=== PATIENT | male | born 1960 | race Caucasian/White ===

== ENCOUNTER → 2018-03-21 06:40 | Outpatient (CLI) | payer OTHER, SELFPAY ==
[2018-03-21 08:56] LABS: Hemoglobin A1C% w Est Avg Glu 7.7 % (4.0-6.0)
[2018-03-21 09:18] LABS: Creatinine Urine Random 165.3 mg/dL
[2018-03-21 09:19] LABS: Alanine Aminotransferase 46 IU/L (21-72); Albumin Globulin Ratio 1.6 (1.0-2.8); Alkaline Phosphatase 65 U/L (38-126); Aspartate Aminotransferase 28 IU/L (17-59); Bilirubin Total 0.7 mg/dL (0.2-1.3); Blood Urea Nitrogen 16 mg/dL (9-20); Calcium 9.3 mg/dL (8.4-10.2); Carbon Dioxide 29 mmol/L (22-32); Chloride 103 mmol/L (98-107); Cholesterol 180 mg/dL (140-199); Estimated Glomerular Filt Rate > 60.0 mL/min (>60); Globulin 2.5 g/dL (1.7-4.1); Glucose 146 mg/dL (70-100); HDL Cholesterol 49 mg/dL (40-60); HEMOLYSIS < 15 (0-50); LDL Cholesterol Calculated 98 mg/dL (<100); Potassium 4.6 mmol/L (3.4-5.1); Sodium 143 mmol/L (137-145); Total Protein 6.5 g/dL (6.3-8.2); Triglycerides 164 mg/dL (35-150)
[2018-03-21 09:24] LABS: Microalbumi Creatinin Ratio Ur 4.2 ug/mg CR (<30); Microalbumin Urine Random 0.7 mg/dL (0-1.6)
== END ==
PROVIDERS: PCP Family Medicine; Visit Provider Family Medicine
DX: E11.9 Type 2 diabetes mellitus without complications (principal)
CPT/HCPCS: 36415; 80053; 80061; 82043; 82570; 83036

== ENCOUNTER → 2018-09-25 07:10 | Outpatient (CLI) | payer OTHER, SELFPAY ==
[2018-09-25 08:48] LABS: Hemoglobin A1C% w Est Avg Glu 9.8 % (4.0-6.0)
[2018-09-25 09:13] LABS: Creatinine Urine Random 109.6 mg/dL
[2018-09-25 09:17] LABS: Microalbumi Creatinin Ratio Ur 7.2 ug/mg CR (<30); Microalbumin Urine Random 0.8 mg/dL (0-1.6)
[2018-09-25 09:21] LABS: Alanine Aminotransferase 60 IU/L (21-72); Albumin 4.1 g/dL (3.5-5.0); Albumin Globulin Ratio 1.8 (1.0-2.8); Alkaline Phosphatase 79 U/L (38-126); Aspartate Aminotransferase 37 IU/L (17-59); BUN Creatinine Ratio 22.2 (6-22); Bilirubin Total 0.5 mg/dL (0.2-1.3); Blood Urea Nitrogen 20 mg/dL (9-20); Calcium 9.6 mg/dL (8.4-10.2); Carbon Dioxide 26 mmol/L (22-32); Chloride 102 mmol/L (98-107); Cholesterol 219 mg/dL (140-199); Estimated Glomerular Filt Rate > 60.0 mL/min (>60); Globulin 2.3 g/dL (1.7-4.1); Glucose 203 mg/dL (70-100); HDL Cholesterol 49 mg/dL (40-60); HEMOLYSIS < 15 (0-50); LDL Cholesterol Calculated 108 mg/dL (<100); Potassium 4.7 mmol/L (3.4-5.1); Sodium 138 mmol/L (137-145); Total Protein 6.4 g/dL (6.3-8.2); Triglycerides 309 mg/dL (35-150)
== END ==
PROVIDERS: PCP Family Medicine; Visit Provider Family Medicine
DX: E11.9 Type 2 diabetes mellitus without complications (principal)
CPT/HCPCS: 36415; 80053; 80061; 82043; 82570; 83036

== ENCOUNTER → 2018-11-22 07:02 | Outpatient (CLI) | payer OTHER, SELFPAY ==
[2018-11-22 08:30] LABS: Hemoglobin A1C% w Est Avg Glu 8.8 % (4.0-6.0)
[2018-11-22 08:38] LABS: Cholesterol 191 mg/dL (140-199); HDL Cholesterol 48 mg/dL (40-60); LDL Cholesterol Calculated 105 mg/dL (<100); Triglycerides 190 mg/dL (35-150)
== END ==
PROVIDERS: PCP Family Medicine; Visit Provider Family Medicine
DX: E11.9 Type 2 diabetes mellitus without complications (principal); E78.2 Mixed hyperlipidemia
CPT/HCPCS: 36415; 80061; 83036

== ENCOUNTER 2019-01-19 10:04 | Emergency (ER) | payer OTHER, SELFPAY ==
[2019-01-19 10:13] VITALS: BP 127/85; PULSE 81; RESP 16; TEMP 36.7; O2SAT 97
[2019-01-19 10:15] VITALS: PULSE 81; RESP 16; TEMP 36.7; O2SAT 97; BMI 34.8
[2019-01-19 10:47] LABS: Add Manual Diff / Slide Review NO; Basophils Absolute Auto 100 /uL (0-100); Basophils Percent Auto 0.6 % (0-2); Eosinophils Absolute Auto 200 /uL (0-450); Eosinophils Percent Auto 2.2 % (2-4); Hemoglobin 14.7 g/dL (13.5-17.5); Lymphocytes Absolute Auto 1200 /uL (1100-4500); Lymphocytes Percent Auto 14.5 % (25-40); Mean Corpuscular HGB Conc 34.2 % (30-36); Mean Corpuscular Hemoglobin 30.8 PG (26-34); Mean Corpuscular Volume 90.1 fL (80-100); Monocytes Absolute Auto 900 /uL (0-900); Monocytes Percent Auto 9.9 % (3-14); Neutrophils Absolute Auto 6300 /uL (1500-7000); Neutrophils Percent Auto 72.8 % (50-75); Platelet Count 163 X10^3/uL (150-400); Red Blood Cell Count 4.77 X10^6/uL (4.5-5.9); Red Cell Distribution Width 12.9 % (11.6-14.8); White Blood Cell Count 8.6 X10^3/uL (4.5-11.0)
[2019-01-19 10:52] LABS: Alanine Aminotransferase 42 IU/L (21-72); Albumin 4.1 g/dL (3.5-5.0); Albumin Globulin Ratio 1.5 (1.0-2.8); Alkaline Phosphatase 83 U/L (38-126); Aspartate Aminotransferase 31 IU/L (17-59); BUN Creatinine Ratio 23.8 (6-22); Bilirubin Total 0.8 mg/dL (0.2-1.3); Blood Urea Nitrogen 19 mg/dL (9-20); Calcium 9.3 mg/dL (8.4-10.2); Carbon Dioxide 26 mmol/L (22-32); Chloride 105 mmol/L (98-107); Estimated Glomerular Filt Rate > 60.0 mL/min (>60); Globulin 2.8 g/dL (1.7-4.1); Glucose 188 mg/dL (70-100); HEMOLYSIS 29 (0-50); Lipase 51 U/L (23-300); Sodium 139 mmol/L (137-145); Total Protein 6.9 g/dL (6.3-8.2)
--- NOTE | 2019-01-19 11:09 | ED.ABDPAIN ---
HPI - Abdominal Pain General Chief Complaint: Abdominal Pain Stated Complaint: Abdominal Pain Time Seen by Provider: 01/19/19 10:41 Source: patient Mode of arrival: ambulatory Limitations: no limitations History of Present Illness HPI narrative: Patient is a 58-year-old male who presents with left lower quadrant pain started last night. A it has progressively gotten worse. He denies any bloody stools or irregular bowel movements no nausea vomiting or fevers. It has not moved it started in the left lower quadrant MD complaint: abdominal pain Location: LLQ Quality: stabbing Radiation: none Migration to: no migration Relieving factors: nothing Related Data Previous Rx's Medication Instructions Recorded ciprofloxacin HCl [Cipro] 500 mg PO BID #14 tab 01/19/19 metronidazole [Flagyl] 500 mg PO TID #21 tab 01/19/19 Allergies Allergy/AdvReac Type Severity Reaction Status Date / Time No Known Drug Allergies Allergy Verified 01/19/19 11:30 Review of Systems Review of Systems GENERAL: Denies chills, fatigue, malaise, fever, sweats, travel HEENT: Denies sinus pain, ear pain, sore throat, difficulty swallowing, neck pain RESPIRATORY: Denies dyspnea, cough, wheezing, hemoptysis, sputum. CARDIOVASCULAR: Denies any chest pain heart palpitations or syncope see HPI Denies nausea, vomiting, abdominal pain, diarrhea, constipation, melena. : Denies dysuria, frequency, incontinence, hematuria, urinary retention, flank pain. MUSCULOSKELETAL: Denies weakness, joint pain, or bony pain SKIN: No rash, no erythema, no pruritus NEUROLOGIC: Denies weakness, dizziness, headache, numbness, change in speech, confusion PSYCHIATRIC: No concerning psychosocial issues. 12 point review of systems is negative except for those stated above and HPI PFSH Medical History Diabetes (Acute) Hyperlipidemia (Acute) Hypertension (Acute) Social History Smoking Status: Never smoker Social History Smoking Status: Never smoker Exam Initial Vital Signs Initial Vital Signs: Vital Signs Temperature 98.0 F 01/19/19 10:13 Pulse Rate 81 01/19/19 10:13 Respiratory Rate 16 01/19/19 10:13 Blood Pressure 127/85 01/19/19 10:13 Pulse Oximetry 97 01/19/19 10:13 GENERAL: Well-appearing, well-nourished and in no acute distress. HEENT: Head atraumatic,EOMI, pupils reactive, face symmetric, moist mucous membranes CARDIOVASCULAR: Regular rate and rhythm without murmurs, rubs or gallops. RESPIRATORY: Breath sounds equal bilaterally, no wheezes rales or rhonchi. ABDOMEN: Soft, tender left lower quadrant no guarding no rebound EXTREMITIES: Normal range of motion, no clubbing or edema. Neurovascularly intact NEUROLOGICAL: Alert and oriented x4.Normal gait and speech. Cranial nerves II through XII grossly intact. SKIN: Warm, dry, no laceration, no petechiae, no rashes or lesions. Course Orders Ordered: ED Orders 01/19/19 10:30 Complete Blood Count AUTO DIFF Stat Comprehensive Metabolic Panel Stat Lipase Stat 01/19/19 11:08 CT abdomen pelvis w con Stat Discontinued Medications Sodium Chloride (Normal Saline 0.9%) 1,000 mls @ 150 mls/hr IV CONT LISBET Last Infusion: 01/19/19 12:42 Dose: 0 mls/hr Admin: 01/19/19 11:31 Dose: 150 mls/hr Vital Signs - 8 hr 01/19/19 10:13 01/19/19 10:15 01/19/19 11:38 Temperature 98.0 F 98.0 F Pulse Rate 81 81 59 L Respiratory Rate 16 16 13 Blood Pressure Blood Pressure [Left Arm] 127/85 126/68 Pulse Oximetry 97 97 96 01/19/19 12:46 Temperature 98.4 F Pulse Rate 61 Respiratory Rate 15 Blood Pressure 120/67 Blood Pressure [Left Arm] Pulse Oximetry 98 MDM - Abdominal Pain Lab Data Attestation: I reviewed the patient's lab results. Result diagrams: 01/19/19 10:30 01/19/19 10:30 Lab Results 01/19/19 01/19/19 Range/Units 10:30 10:30 WBC 8.6 (4.5-11.0) X10^3/uL RBC 4.77 (4.5-5.9) X10^6/uL Hgb 14.7 (13.5-17.5) g/dL Hct 43.0 (41-53) % MCV 90.1 (80-100) fL MCH 30.8 (26-34) PG MCHC 34.2 (30-36) % RDW 12.9 (11.6-14.8) % Plt Count 163 (150-400) X10^3/uL Neut % (Auto) 72.8 (50-75) % Lymph % (Auto) 14.5 L (25-40) % [place] % (Auto) 9.9 (3-14) % Eos % (Auto) 2.2 (2-4) % Baso % (Auto) 0.6 (0-2) % Neut # (Auto) 6300 (9794-7327) /uL Lymph # (Auto) 1200 (0921-5015) /uL [place] # (Auto) 900 (0-900) /uL Eos # (Auto) 200 (0-450) /uL Baso # (Auto) 100 (0-100) /uL Sodium 139 (137-145) mmol/L Potassium 4.0 (3.4-5.1) mmol/L Chloride 105 (98-107) mmol/L Carbon Dioxide 26 (22-32) mmol/L BUN 19 (9-20) mg/dL Creatinine 0.80 (0.66-1.25) mg/dL Estimated GFR > 60.0 (>60) mL/min BUN/Creatinine Ratio 23.8 H (6-22) Glucose 188 H (70-100) mg/dL Calcium 9.3 (8.4-10.2) mg/dL Total Bilirubin 0.8 (0.2-1.3) mg/dL AST 31 (17-59) IU/L ALT 42 (21-72) IU/L Alkaline Phosphatase 83 (38-126) U/L Total Protein 6.9 (6.3-8.2) g/dL Albumin 4.1 (3.5-5.0) g/dL Globulin 2.8 (1.7-4.1) g/dL Albumin/Globulin Ratio 1.5 (1.0-2.8) Lipase 51 (23-300) U/L Imaging Data CT scan - abdomen: Radiologist's impression: PROCEDURE: CT ABDOMEN PELVIS W CON INDICATIONS: left lower quad pain TECHNIQUE: After the administration of intravenous contrast, 5 mm thick sections acquired from the diaphragm to the symphysis. 5 mm coronal and sagittal reformats were acquired. For radiation dose reduction, the following was used: automated exposure control, adjustment of mA and/or kV according to patient size. COMPARISON: [facility], CT, ABDOMEN/PELVIS WITH CONTRAST, 02/14/2007, 23:14. FINDINGS: Image quality: Excellent. ABDOMEN: Lung bases: Lung bases are clear. Heart size is normal. Solid organs: Liver is normal in size. Hepatic steatosis is seen. Small hypodense areas are seen involving superior anterior aspect of left hepatic lobe and measures 1 cm in size in posterior aspect of right hepatic lobe and measures 5 mm size. Gallbladder is within normal limits. Biliary system is non dilated. Pancreas enhances normally. Spleen is normal in size and enhancement. No adrenal nodules. Kidneys demonstrate normal size and enhancement. Tiny nonobstructing left renal calculi are seen measures up to 2 mm in size. Mild prominence of left renal collecting system and left ureter is seen extending to the level of left UVJ. Mild left perinephric fat stranding is seen. No obstructing renal stone ureteral stone is seen. No calcified bladder stone. Peritoneum and bowel: There is no evidence of bowel obstruction. Wall thickening and pericolonic fat stranding involving distal descending colon/proximal sigmoid colon is seen suggestive of acute diverticulitis. No free fluid or free air. No abscess collection. Nodes and vessels: No retroperitoneal or mesenteric adenopathy by size criteria. Aorta and inferior vena cava are normal in size. Miscellaneous: No ventral hernias. PELVIS: Genitourinary: Bladder wall thickness is normal. Miscellaneous: No inguinal hernias or adenopathy. Bones: No suspicious bony lesions. No vertebral body compression fractures. IMPRESSION: 1. Finding is suggestive of acute diverticulitis involving distal descending colon/proximal sigmoid colon. No abscess collection. No bowel obstruction. No free fluid or free air. 2. Questionable mild left-sided hydronephrosis/hydroureter with mild left perinephric fat stranding. No obstructing renal stone or ureteral stone is seen. Left-sided nonobstructing renal calculi measures up to 2 mm in size. A passed left-sided renal stone cannot be entirely excluded. 3. Well-circumscribed hypodensities in right and left hepatic lobes, and may represent hepatic cysts. Dictated by: Vasyl Nascimento M.D. on 01/19/2019 at 11:57 MDM Narrative Medical decision making narrative: Patient overall feeling better. CT does show diverticulitis he is not appear septic no leukocytosis. Will start him on outpatient antibiotics and have close follow-up. Discharge Plan Departure Patient Disposition: Home Clinical Impression: Diverticulitis Discharge Date/Time: 01/19/19 12:46 Interventions: ED Discharge Assessment Last Done: 01/19/19 12:46 Instructions: Diverticulitis Activity Restrictions/Additional Instructions: *You have been diagnosed with diverticulitis *What to do: At this time have infection in your colon. As it is healing avoid high-fiber diet, however high-fiber diet will help prevent this from happening again. So once healed please start. *Continue to take medications as directed Cipro 500 mg twice a day for 7 days Flagyl 500 mg 3 times a day for 7 *Follow up with your primary care provider in 2-3 days *Return to ER if you should have increasing pain bloody stools fevers or any new, worsening or concerning symptoms Prescriptions: New metronidazole [Flagyl] 500 mg tablet 500 mg PO TID Qty: 21 RF: 0 ciprofloxacin HCl [Cipro] 500 mg tablet 500 mg PO BID Qty: 14 RF: 0 Referrals: Alex Mendoza MD [Primary Care Provider] -
[2019-01-19] MEDS: SODIUM CHLORIDE 0.9% 1,000 ML 150 ML IV (11:31)
[2019-01-19 11:38] VITALS: BP 126/68; PULSE 59; RESP 13; O2SAT 96
[2019-01-19 12:46] VITALS: BP 120/67; PULSE 61; RESP 15; TEMP 36.9; O2SAT 98
== END 2019-01-19 12:46 | disposition home or self-care (01) ==
PROVIDERS: Emergency Provider Emergency Medicine; PCP Family Medicine
DX: K57.92 Diverticulitis of intestine, part unspecified, without perforation or abscess without bleeding (principal); R10.32 Left lower quadrant pain
CPT/HCPCS: 36591; 74177; 80053; 83690; 85025; 96360; 99283; 99284; Q9967

== ENCOUNTER → 2019-02-23 06:57 | Outpatient (CLI) | payer OTHER, SELFPAY ==
[2019-02-23 08:23] LABS: Alanine Aminotransferase 62 IU/L (21-72); Albumin 4.4 g/dL (3.5-5.0); Albumin Globulin Ratio 1.6 (1.0-2.8); Alkaline Phosphatase 79 U/L (38-126); Aspartate Aminotransferase 49 IU/L (17-59); BUN Creatinine Ratio 24.4 (6-22); Bilirubin Total 0.8 mg/dL (0.2-1.3); Blood Urea Nitrogen 22 mg/dL (9-20); Calcium 9.7 mg/dL (8.4-10.2); Carbon Dioxide 28 mmol/L (22-32); Chloride 103 mmol/L (98-107); Estimated Glomerular Filt Rate > 60.0 mL/min (>60); Globulin 2.8 g/dL (1.7-4.1); Glucose 195 mg/dL (70-100); HEMOLYSIS < 15 (0-50); Potassium 4.8 mmol/L (3.4-5.1); Sodium 141 mmol/L (137-145); Total Protein 7.2 g/dL (6.3-8.2)
[2019-02-23 08:28] LABS: Hemoglobin A1C% w Est Avg Glu 8.3 % (4.0-6.0)
[2019-02-23 09:09] LABS: Vitamin B12 270 pg/mL (239-931)
== END ==
PROVIDERS: PCP Family Medicine; Visit Provider Family Medicine
DX: E11.9 Type 2 diabetes mellitus without complications (principal)
CPT/HCPCS: 36415; 80053; 82607; 83036

== ENCOUNTER → 2019-05-25 07:07 | Outpatient (CLI) | payer OTHER, SELFPAY ==
[2019-05-25 08:37] LABS: Hemoglobin A1C% w Est Avg Glu 7.9 % (4.0-6.0)
== END ==
PROVIDERS: PCP Family Medicine; Visit Provider Family Medicine
DX: E11.9 Type 2 diabetes mellitus without complications (principal)
CPT/HCPCS: 36415; 83036

== ENCOUNTER → 2019-09-25 07:18 | Outpatient (CLI) | payer OTHER, SELFPAY ==
[2019-09-25 07:33] LABS: Add Manual Diff / Slide Review NO; Basophils Absolute Auto 100 /uL (0-100); Basophils Percent Auto 0.8 % (0-2); Eosinophils Absolute Auto 200 /uL (0-450); Eosinophils Percent Auto 2.7 % (2-4); Hematocrit 44.7 % (41-53); Hemoglobin 15.2 g/dL (13.5-17.5); Lymphocytes Absolute Auto 1400 /uL (1100-4500); Mean Corpuscular HGB Conc 33.9 % (30-36); Mean Corpuscular Volume 91.5 fL (80-100); Monocytes Absolute Auto 600 /uL (0-900); Monocytes Percent Auto 9.1 % (3-14); Neutrophils Absolute Auto 4400 /uL (1500-7000); Neutrophils Percent Auto 66.4 % (50-75); Platelet Count 191 X10^3/uL (150-400); Red Blood Cell Count 4.89 X10^6/uL (4.5-5.9); Red Cell Distribution Width 12.9 % (11.6-14.8); White Blood Cell Count 6.6 X10^3/uL (4.5-11.0)
[2019-09-25 07:39] LABS: Hemoglobin A1C% w Est Avg Glu 8.2 % (4.0-6.0)
[2019-09-25 07:43] LABS: Alanine Aminotransferase 40 IU/L (<50); Albumin 4.3 g/dL (3.5-5.0); Albumin Globulin Ratio 1.5 (1.0-2.8); Alkaline Phosphatase 73 U/L (38-126); Aspartate Aminotransferase 39 IU/L (17-59); Bilirubin Total 0.8 mg/dL (0.2-1.3); Blood Urea Nitrogen 16 mg/dL (9-20); Calcium 9.3 mg/dL (8.4-10.2); Carbon Dioxide 25 mmol/L (22-32); Chloride 107 mmol/L (98-107); Cholesterol 188 mg/dL (140-199); Estimated Glomerular Filt Rate > 60.0 mL/min (>60); Globulin 2.9 g/dL (1.7-4.1); Glucose 178 mg/dL (70-100); HDL Cholesterol 42 mg/dL (40-60); HEMOLYSIS 16 (0-50); LDL Cholesterol Calculated 102 mg/dL (<100); Potassium 4.4 mmol/L (3.4-5.1); Sodium 141 mmol/L (137-145); Total Protein 7.2 g/dL (6.3-8.2); Triglycerides 222 mg/dL (35-150)
[2019-09-25 09:48] LABS: Creatinine Urine Random 169.3 mg/dL
[2019-09-25 09:53] LABS: Microalbumi Creatinin Ratio Ur 5.3 ug/mg CR (<30); Microalbumin Urine Random 0.9 mg/dL (0-1.6)
== END ==
PROVIDERS: PCP Family Medicine; Referring Provider Family Medicine; Visit Provider Family Medicine
DX: E11.9 Type 2 diabetes mellitus without complications (principal)
CPT/HCPCS: 36415; 80053; 80061; 82043; 82570; 83036; 85025

== ENCOUNTER → 2020-01-01 07:14 | Outpatient (CLI) | payer OTHER, SELFPAY ==
[2020-01-01 08:19] LABS: Add Manual Diff / Slide Review NO; Basophils Absolute Auto 100 /uL (0-100); Basophils Percent Auto 0.9 % (0-2); Eosinophils Absolute Auto 100 /uL (0-450); Eosinophils Percent Auto 2.2 % (2-4); Hematocrit 44.6 % (41-53); Hemoglobin 15.4 g/dL (13.5-17.5); Lymphocytes Absolute Auto 1600 /uL (1100-4500); Lymphocytes Percent Auto 24.7 % (25-40); Mean Corpuscular HGB Conc 34.5 % (30-36); Mean Corpuscular Hemoglobin 31.5 PG (26-34); Mean Corpuscular Volume 91.2 fL (80-100); Monocytes Absolute Auto 600 /uL (0-900); Monocytes Percent Auto 9.3 % (3-14); Neutrophils Absolute Auto 4100 /uL (1500-7000); Neutrophils Percent Auto 62.9 % (50-75); Platelet Count 200 X10^3/uL (150-400); Red Blood Cell Count 4.89 X10^6/uL (4.5-5.9); Red Cell Distribution Width 12.6 % (11.6-14.8); White Blood Cell Count 6.5 X10^3/uL (4.5-11.0)
[2020-01-01 08:36] LABS: Hemoglobin A1C% w Est Avg Glu 9.3 % (4.0-6.0)
[2020-01-01 08:40] LABS: Alanine Aminotransferase 53 IU/L (<50); Albumin 4.3 g/dL (3.5-5.0); Albumin Globulin Ratio 1.9 (1.0-2.8); Alkaline Phosphatase 80 U/L (38-126); Aspartate Aminotransferase 58 IU/L (17-59); BUN Creatinine Ratio 24.4 (6-22); Bilirubin Total 0.7 mg/dL (0.2-1.3); Blood Urea Nitrogen 19 mg/dL (9-20); Calcium 9.9 mg/dL (8.4-10.2); Carbon Dioxide 26 mmol/L (22-32); Chloride 103 mmol/L (98-107); Cholesterol 199 mg/dL (140-199); Estimated Glomerular Filt Rate > 60.0 mL/min (>60); Globulin 2.3 g/dL (1.7-4.1); Glucose 212 mg/dL (70-100); HDL Cholesterol 47 mg/dL (40-60); HEMOLYSIS < 15 (0-50); LDL Cholesterol Calculated 100 mg/dL (<100); Potassium 4.6 mmol/L (3.4-5.1); Sodium 138 mmol/L (137-145); Total Protein 6.6 g/dL (6.3-8.2); Triglycerides 260 mg/dL (35-150)
[2020-01-01 09:03] LABS: Prostate Specific Antigen Scrn 0.179 ng/mL (0.1-4.0)
== END ==
PROVIDERS: PCP Family Medicine; Referring Provider Family Medicine; Visit Provider Family Medicine
DX: Z12.5 Encounter for screening for malignant neoplasm of prostate (principal); E78.2 Mixed hyperlipidemia; E11.9 Type 2 diabetes mellitus without complications; I10 Essential (primary) hypertension; Z83.3 Family history of diabetes mellitus
CPT/HCPCS: 36415; 80053; 80061; 83036; 85025; G0103

== ENCOUNTER → 2020-04-09 07:14 | Outpatient (CLI) | payer OTHER, SELFPAY ==
[2020-04-09 08:29] LABS: Hemoglobin A1C% w Est Avg Glu 11.1 % (4.0-6.0)
== END ==
PROVIDERS: PCP Family Medicine; Referring Provider Family Medicine; Visit Provider Family Medicine
DX: E11.9 Type 2 diabetes mellitus without complications (principal)
CPT/HCPCS: 36415; 83036

== ENCOUNTER → 2020-05-20 07:26 | Outpatient (CLI) | payer OTHER, SELFPAY ==
[2020-05-20 08:18] LABS: Hemoglobin A1C% w Est Avg Glu 10.9 % (4.0-6.0)
== END ==
PROVIDERS: PCP Family Medicine; Referring Provider Family Medicine; Visit Provider Family Medicine
DX: E11.9 Type 2 diabetes mellitus without complications (principal)
CPT/HCPCS: 36415; 83036

== ENCOUNTER → 2020-07-21 07:03 | Outpatient (CLI) | payer OTHER, SELFPAY ==
[2020-07-21 08:54] LABS: Add Manual Diff / Slide Review NO; Basophils Absolute Auto 0 /uL (0-100); Basophils Percent Auto 0.7 % (0-2); Eosinophils Absolute Auto 200 /uL (0-450); Hematocrit 46.2 % (41-53); Hemoglobin 15.6 g/dL (13.5-17.5); Lymphocytes Absolute Auto 1700 /uL (1100-4500); Lymphocytes Percent Auto 27.3 % (25-40); Mean Corpuscular HGB Conc 33.9 % (30-36); Mean Corpuscular Hemoglobin 30.8 PG (26-34); Mean Corpuscular Volume 90.8 fL (80-100); Monocytes Absolute Auto 500 /uL (0-900); Monocytes Percent Auto 7.5 % (3-14); Neutrophils Absolute Auto 3700 /uL (1500-7000); Neutrophils Percent Auto 61.5 % (50-75); Platelet Count 189 X10^3/uL (150-400); Red Blood Cell Count 5.08 X10^6/uL (4.5-5.9); Red Cell Distribution Width 12.8 % (11.6-14.8); White Blood Cell Count 6.1 X10^3/uL (4.5-11.0)
[2020-07-21 09:05] LABS: Hemoglobin A1C% w Est Avg Glu 10.2 % (4.0-6.0)
[2020-07-21 09:17] LABS: Alanine Aminotransferase 38 IU/L (<50); Albumin 4.1 g/dL (3.5-5.0); Albumin Globulin Ratio 1.6 (1.0-2.8); Alkaline Phosphatase 86 U/L (38-126); Aspartate Aminotransferase 35 IU/L (17-59); BUN Creatinine Ratio 21.5 (6-22); Bilirubin Total 0.5 mg/dL (0.2-1.3); Blood Urea Nitrogen 17 mg/dL (9-20); Calcium 9.3 mg/dL (8.4-10.2); Carbon Dioxide 28 mmol/L (22-32); Chloride 105 mmol/L (98-107); Cholesterol 200 mg/dL (140-199); Estimated Glomerular Filt Rate > 60.0 mL/min (>60); Globulin 2.6 g/dL (1.7-4.1); Glucose 201 mg/dL (70-100); HDL Cholesterol 48 mg/dL (40-60); HEMOLYSIS < 15 (0-50); LDL Cholesterol Calculated 101 mg/dL (<100); Potassium 4.5 mmol/L (3.4-5.1); Sodium 138 mmol/L (137-145); Total Protein 6.7 g/dL (6.3-8.2); Triglycerides 253 mg/dL (35-150)
[2020-07-21 10:03] LABS: Thyroid Stimulating Hormone 2.31 uIU/mL (0.47-4.68)
== END ==
PROVIDERS: PCP Family Medicine; Referring Provider Family Medicine; Visit Provider Family Medicine
DX: I10 Essential (primary) hypertension (principal); E11.9 Type 2 diabetes mellitus without complications; E78.2 Mixed hyperlipidemia; N20.0 Calculus of kidney
CPT/HCPCS: 36415; 80053; 80061; 83036; 84443; 85025

== ENCOUNTER → 2020-10-14 07:14 | Outpatient (CLI) | payer OTHER, SELFPAY ==
[2020-10-14 08:19] LABS: Hemoglobin A1C% w Est Avg Glu 9.8 % (4.0-6.0)
[2020-10-14 08:22] LABS: Alanine Aminotransferase 34 IU/L (<50); Albumin 3.9 g/dL (3.5-5.0); Albumin Globulin Ratio 1.4 (1.0-2.8); Alkaline Phosphatase 87 U/L (38-126); Aspartate Aminotransferase 33 IU/L (17-59); BUN Creatinine Ratio 19.2 (6-22); Bilirubin Total 0.6 mg/dL (0.2-1.3); Blood Urea Nitrogen 15 mg/dL (9-20); Calcium 9.5 mg/dL (8.4-10.2); Carbon Dioxide 27 mmol/L (22-32); Chloride 104 mmol/L (98-107); Cholesterol 154 mg/dL (140-199); Estimated Glomerular Filt Rate > 60.0 mL/min (>60); Globulin 2.7 g/dL (1.7-4.1); Glucose 238 mg/dL (70-100); HDL Cholesterol 44 mg/dL (40-60); HEMOLYSIS < 15 (0-50); LDL Cholesterol Calculated 73 mg/dL (<100); Potassium 4.4 mmol/L (3.4-5.1); Sodium 137 mmol/L (137-145); Total Protein 6.6 g/dL (6.3-8.2); Triglycerides 183 mg/dL (35-150)
[2020-10-14 09:19] LABS: Microalbumin Urine Random 0.8 mg/dL (0-1.6)
[2020-10-14 09:20] LABS: Creatinine Urine Random 125.1 mg/dL; Microalbumi Creatinin Ratio Ur 6.3 ug/mg CR (<30)
[2020-10-15 17:36] LABS: Hep C Virus Ab w/Reflex Quant NEGATIVE s/c (NEGATIVE)
== END ==
PROVIDERS: PCP Family Medicine; Referring Provider Family Medicine; Visit Provider Family Medicine
DX: E11.9 Type 2 diabetes mellitus without complications (principal)
CPT/HCPCS: 36415; 80053; 80061; 82043; 82570; 83036; 86803

== ENCOUNTER → 2021-01-27 07:04 | Outpatient (CLI) | payer OTHER, SELFPAY ==
[2021-01-27 07:44] LABS: Hemoglobin A1C% w Est Avg Glu 10.1 % (4.0-6.0)
== END ==
PROVIDERS: PCP Family Medicine; Referring Provider Family Medicine; Visit Provider Family Medicine
DX: E11.9 Type 2 diabetes mellitus without complications (principal)
CPT/HCPCS: 36415; 83036

== ENCOUNTER → 2021-04-10 07:04 | Outpatient (CLI) | payer OTHER, SELFPAY ==
[2021-04-10 09:00] LABS: Hemoglobin A1C% w Est Avg Glu 9.9 % (4.0-6.0)
== END ==
PROVIDERS: PCP Family Medicine; Referring Provider Family Medicine; Visit Provider Family Medicine
DX: E11.9 Type 2 diabetes mellitus without complications (principal)
CPT/HCPCS: 36415; 83036

== ENCOUNTER → 2021-07-09 07:23 | Outpatient (CLI) | payer OTHER, SELFPAY ==
[2021-07-09 08:43] LABS: Hemoglobin A1C% w Est Avg Glu 9.7 % (4.0-6.0)
== END ==
PROVIDERS: PCP Family Medicine; Referring Provider Family Medicine; Visit Provider Family Medicine
DX: E11.9 Type 2 diabetes mellitus without complications (principal)
CPT/HCPCS: 36415; 83036

== ENCOUNTER 2021-10-01 13:11 | Emergency (ER) | payer OTHER, SELFPAY ==
[2021-10-01 13:13] VITALS: BP 190/103; PULSE 70; RESP 18; TEMP 36.3; O2SAT 99; BMI 34.8
--- NOTE | 2021-10-01 13:19 | DI.RAD.S_ITS ---
PROCEDURE: XR CHEST 1V INDICATIONS: chest pain TECHNIQUE: One view of the chest was acquired. COMPARISON: None. FINDINGS: Surgical changes and devices: None. Lungs and pleura: Lungs are clear. No pleural effusions or pneumothorax. Mediastinum: Mediastinal contours appear normal. Heart size is normal. Bones and chest wall: No suspicious bony lesions. Overlying soft tissues appear unremarkable. IMPRESSION: No acute cardiopulmonary disease process. Dictated by: Carly Marc MD, PhD on 10/01/2021 at 14:01 Approved by: Carly Marc MD, PhD on 10/01/2021 at 14:01
[2021-10-01 13:39] LABS: Add Manual Diff / Slide Review NO; Basophils Absolute Auto 100 /uL (0-100); Basophils Percent Auto 1.1 % (0-2); Eosinophils Absolute Auto 200 /uL (0-450); Eosinophils Percent Auto 2.5 % (2-4); Hematocrit 42.3 % (41-53); Hemoglobin 14.4 g/dL (13.5-17.5); Lymphocytes Absolute Auto 1400 /uL (1100-4500); Lymphocytes Percent Auto 23.3 % (25-40); Mean Corpuscular HGB Conc 34.1 % (30-36); Mean Corpuscular Hemoglobin 30.7 PG (26-34); Mean Corpuscular Volume 89.9 fL (80-100); Monocytes Absolute Auto 500 /uL (0-900); Monocytes Percent Auto 8.4 % (3-14); Neutrophils Absolute Auto 4000 /uL (1500-7000); Neutrophils Percent Auto 64.7 % (50-75); Platelet Count 205 X10^3/uL (150-400); Red Cell Distribution Width 12.9 % (11.6-14.8); White Blood Cell Count 6.2 X10^3/uL (4.5-11.0)
[2021-10-01 13:52] LABS: Alanine Aminotransferase 35 IU/L (<50); Albumin 4.4 g/dL (3.5-5.0); Albumin Globulin Ratio 1.6 (1.0-2.8); Alkaline Phosphatase 79 U/L (38-126); Aspartate Aminotransferase 34 IU/L (17-59); Bilirubin Total 0.5 mg/dL (0.2-1.3); Blood Urea Nitrogen 24 mg/dL (9-20); Calcium 9.1 mg/dL (8.4-10.2); Carbon Dioxide 27 mmol/L (22-32); Chloride 106 mmol/L (98-107); Creatine Kinase 177 U/L (55-170); Estimated Glomerular Filt Rate > 60 mL/min (>60); Globulin 2.8 g/dL (1.7-4.1); Glucose 208 mg/dL (70-100); HEMOLYSIS 19 (0-50); Lipase 290 U/L (23-300); Magnesium 1.6 mg/dL (1.6-2.3); Potassium 4.2 mmol/L (3.4-5.1); Sodium 142 mmol/L (137-145); Total Protein 7.2 g/dL (6.3-8.2)
[2021-10-01 14:03] LABS: Troponin I < 0.012 ng/mL (0.01-0.034)
[2021-10-01 14:07] LABS: CKMB % Relative Index 1.1 % (1.5-5.0); Creatine Kinase MB 1.98 ng/mL (<2.37)
[2021-10-01 15:12] VITALS: PULSE 57; O2SAT 98
[2021-10-01 15:14] VITALS: BP 130/64; PULSE 57; RESP 13; O2SAT 97
--- NOTE | 2021-10-01 15:20 | ED_ITS ---
HPI - Chest Pain General Chief Complaint: Chest Pain Stated Complaint: chest pain last night/today/dizziness Time Seen by Provider: 10/01/21 15:12 Source: patient Mode of arrival: Ambulatory Limitations: no limitations History of Present Illness HPI narrative: Patient is a 61-year-old male history of diabetes presenting chest discomfort. He has actually had some discomfort off and on for couple of weeks. He rm cribes it as a dull ache in the center of the chest but more on the left side. He says he gets frequent episodes a day lasting only a second. It is nonradiating. He denies any palpitations or shortness of breath with exertion. He said yesterday he started noticing some sharper pain. Which was a change. He says that at the discomfort only last for about 2nd. He has not taken anything for the pain. He has not traveled anywhere recently he denies any orthopnea. No nausea vomiting or abdominal pain. He has no prior history of coronary artery disease. He does smoke marijuana daily but no drugs. No family history of coronary artery disease. Related Data Previous Rx's Medication Instructions Recorded ciprofloxacin HCl 500 mg tablet 500 mg PO BID #14 tab 01/19/19 (Cipro) metronidazole 500 mg tablet 500 mg PO TID #21 tab 01/19/19 (Flagyl) Allergies Allergy/AdvReac Type Severity Reaction Status Date / Time No Known Drug Allergies Allergy Verified 01/19/19 11:30 Review of Systems Review of Systems Narrative: GENERAL: Denies chills, fatigue, malaise, fever, sweats, travel HEENT: Denies sinus pain, ear pain, sore throat, difficulty swallowing, neck pain RESPIRATORY: Denies dyspnea, cough, wheezing, hemoptysis, sputum. CARDIOVASCULAR: See HPI GASTROINTESTINAL: Denies nausea, vomiting, abdominal pain, diarrhea, constipation, melena. : Denies dysuria, frequency, incontinence, hematuria, urinary retention, flank pain. MUSCULOSKELETAL: Denies weakness, joint pain, or bony pain SKIN: No rash, no erythema, no pruritus NEUROLOGIC: Denies weakness, dizziness, headache, numbness, change in speech, confusion PSYCHIATRIC: No concerning psychosocial issues. 12 point review of systems is negative except for those stated above and HPI Patient History Medical History (Updated 10/01/21 @ 16:13 by Shaista Mosquera DO) Diabetes Hyperlipidemia Hypertension Social History Smoking Status: Former smoker Smoking Status: Former smoker alcohol intake frequency: holidays/special occasions only Substance Use Type: marijuana Exam Initial Vital Signs Initial Vital Signs: Vital Signs Temperature 97.4 F L 10/01/21 13:13 Pulse Rate 70 10/01/21 13:13 Respiratory Rate 18 10/01/21 13:13 Blood Pressure 190/103 H 10/01/21 13:13 Pulse Oximetry 99 10/01/21 13:13 GENERAL: Alert pleasant 61-year-old male and in no acute distress. HEENT: Head atraumatic,EOMI, pupils reactive, face symmetric, moist mucous membranes CARDIOVASCULAR: Regular rate and rhythm without murmurs, rubs or gallops. RESPIRATORY: Breath sounds equal bilaterally, no wheezes rales or rhonchi. ABDOMEN: Soft, nontender. Normoactive bowel sounds all 4 quadrants. No guarding or rebound. EXTREMITIES: Normal range of motion, no clubbing or edema. Neurovascularly intact NEUROLOGICAL: Alert and oriented x4.Normal gait and speech. SKIN: Warm, dry, no laceration, no petechiae, no rashes or lesions. Scores HEART Score Heart Score history: Slightly Suspicious Heart Score EKG: Normal Heart Score Age: 45-64 years old Heart Score risk factors: 1-2 risk factors Heart Score troponin: < or = to normal limit Heart Score Total: 2 Course Orders Ordered: ED Orders 10/01/21 13:16 EKG-12 Lead Stat 10/01/21 13:19 XR chest 1V Stat 10/01/21 13:24 Complete Blood Count AUTO DIFF Stat Comprehensive Metabolic Panel Stat Lipase Stat Magnesium Stat Troponin & CK Cardiac Panel Stat Vital Signs Vital signs: Vital Signs - 8 hr 10/01/21 13:13 10/01/21 15:12 10/01/21 15:14 Temperature 97.4 F L Pulse Rate 70 57 L 57 L Respiratory Rate 18 13 Blood Pressure 190/103 H 130/64 Pulse Oximetry 99 98 97 10/01/21 15:30 10/01/21 16:00 Temperature Pulse Rate 54 L 53 L Respiratory Rate 13 12 Blood Pressure 123/58 L 123/58 L Pulse Oximetry 96 95 MDM - Chest Pain Lab Data Result diagrams: 10/01/21 13:24 04/14/22 13:24 Labs: Lab Results 10/01/21 10/01/21 Range/Units 13:24 13:24 WBC 6.2 (4.5-11.0) X10^3/uL RBC 4.70 (4.5-5.9) X10^6/uL Hgb 14.4 (13.5-17.5) g/dL Hct 42.3 (41-53) % MCV 89.9 (80-100) fL MCH 30.7 (26-34) PG MCHC 34.1 (30-36) % RDW 12.9 (11.6-14.8) % Plt Count 205 (150-400) X10^3/uL Neut % (Auto) 64.7 (50-75) % Lymph % (Auto) 23.3 L (25-40) % [place] % (Auto) 8.4 (3-14) % Eos % (Auto) 2.5 (2-4) % Baso % (Auto) 1.1 (0-2) % Neut # (Auto) 4000 (5696-2435) /uL Lymph # (Auto) 1400 (4730-8144) /uL [place] # (Auto) 500 (0-900) /uL Eos # (Auto) 200 (0-450) /uL Baso # (Auto) 100 (0-100) /uL Sodium 142 (137-145) mmol/L Potassium 4.2 (3.4-5.1) mmol/L Chloride 106 (98-107) mmol/L Carbon Dioxide 27 (22-32) mmol/L BUN 24 H (9-20) mg/dL Creatinine 0.96 (0.66-1.25) mg/dL Estimated GFR > 60 (>60) mL/min BUN/Creatinine Ratio 25.0 H (6-22) Glucose 208 H (70-100) mg/dL Calcium 9.1 (8.4-10.2) mg/dL Magnesium 1.6 (1.6-2.3) mg/dL Total Bilirubin 0.5 (0.2-1.3) mg/dL AST 34 (17-59) IU/L ALT 35 (<50) IU/L Alkaline Phosphatase 79 (38-126) U/L Total Creatine Kinase 177 H (55-170) U/L CK-MB (CK-2) 1.98 (<2.37) ng/mL CK-MB (CK-2) Rel Index 1.1 L (1.5-5.0) % Troponin I < 0.012 (0.01-0.034) ng/mL Total Protein 7.2 (6.3-8.2) g/dL Albumin 4.4 (3.5-5.0) g/dL Globulin 2.8 (1.7-4.1) g/dL Albumin/Globulin Ratio 1.6 (1.0-2.8) Lipase 290 (23-300) U/L ECG Data Interpretation: Normal sinus rhythm rate 71 UT interval 162 QRS 98 QTC 434 T-wave inversion noted in lead [address] changes no priors to compare. MDM Narrative Medical decision making narrative: At this time the patient has had discomfort off and on for a couple of weeks it does not sound cardiac in nature is seeing is that it lasts a very brief time. Even though it was a dull ache and now it is occasionally sharp. He has a negative troponin and normal EKG. He has a low heart score. I did discuss with him that he probably needs outpatient cardiac workup but does not need to stay in hospital. I encouraged him to return to the ED if his symptoms should change in way. I discussed all findings with the patient, Education has been performed regarding treatment plan, diagnosis, warning signs and symptoms and all concerns have been addressed. Verbally agree with and understood all of the above. Discharge Plan Departure Patient Disposition: Home Clinical Impression: Atypical chest pain Instructions: DI for Atypical Chest Pain Activity Restrictions/Additional Instructions: *You have been diagnosed with atypical chest pain *What to do: At this time workup in the emergency department is negative. However you may still need further heart testing with your primary care provider. *Continue to take medications as directed Aspirin 81 mg daily *Follow up with your primary care provider in 2-3 days or call [phone] *Return to ER if you should have changing or worsening chest discomfort. Shortness of breath, palpitations or any new, worsening or concerning symptoms Prescriptions: No Action metronidazole [Flagyl] 500 mg tablet 500 mg PO TID Qty: 21 0RF ciprofloxacin HCl [Cipro] 500 mg tablet 500 mg PO BID Qty: 14 0RF Referrals: Yuriy Whaley MD [Primary Care Provider] -
[2021-10-01 15:30] VITALS: BP 123/58; PULSE 54; RESP 13; O2SAT 96
[2021-10-01 16:00] VITALS: BP 123/58; PULSE 53; RESP 12; O2SAT 95
== END 2021-10-01 16:27 | disposition home or self-care (01) ==
PROVIDERS: Emergency Provider Emergency Medicine; PCP Family Medicine
DX: R07.89 Other chest pain (principal); Z87.891 Personal history of nicotine dependence
CPT/HCPCS: 36415; 71045; 80053; 82550; 82553; 83690; 83735; 84484; 85025; 93005; 93010; 99284

== ENCOUNTER → 2021-10-12 06:54 | Outpatient (CLI) | payer OTHER, SELFPAY ==
[2021-10-12 08:30] LABS: Alanine Aminotransferase 36 IU/L (<50); Albumin 4.1 g/dL (3.5-5.0); Albumin Globulin Ratio 1.5 (1.0-2.8); Alkaline Phosphatase 72 U/L (38-126); Aspartate Aminotransferase 35 IU/L (17-59); BUN Creatinine Ratio 18.2 (6-22); Bilirubin Total 0.6 mg/dL (0.2-1.3); Blood Urea Nitrogen 18 mg/dL (9-20); Calcium 9.3 mg/dL (8.4-10.2); Carbon Dioxide 28 mmol/L (22-32); Chloride 106 mmol/L (98-107); Cholesterol 153 mg/dL (140-199); Estimated Glomerular Filt Rate > 60 mL/min (>60); Globulin 2.7 g/dL (1.7-4.1); Glucose 227 mg/dL (70-100); HDL Cholesterol 44 mg/dL (40-60); HEMOLYSIS < 15 (0-50); LDL Cholesterol Calculated 80 mg/dL (<100); Potassium 4.7 mmol/L (3.4-5.1); Sodium 140 mmol/L (137-145); Total Protein 6.8 g/dL (6.3-8.2); Triglycerides 147 mg/dL (35-150)
[2021-10-12 08:31] LABS: Creatinine Urine Random 122.5 mg/dL
[2021-10-12 08:34] LABS: Hemoglobin A1C% w Est Avg Glu 9.8 % (4.0-6.0)
[2021-10-12 08:36] LABS: Microalbumi Creatinin Ratio Ur 8.9 ug/mg CR (<30); Microalbumin Urine Random 1.1 mg/dL (0-1.6)
[2021-10-12 08:41] LABS: LDL Cholesterol Direct 75 mg/dL (<100)
== END ==
PROVIDERS: PCP Family Medicine; Referring Provider Family Medicine; Visit Provider Family Medicine
DX: E11.9 Type 2 diabetes mellitus without complications (principal); E78.2 Mixed hyperlipidemia; E66.9 Obesity, unspecified; I10 Essential (primary) hypertension
CPT/HCPCS: 36415; 80053; 80061; 82043; 82570; 83036; 83721

== ENCOUNTER → 2022-01-13 06:55 | Outpatient (CLI) | payer OTHER, SELFPAY ==
[2022-01-13 07:54] LABS: Hemoglobin A1C% w Est Avg Glu 9.5 % (4.0-6.0)
== END ==
PROVIDERS: PCP Family Medicine; Referring Provider Family Medicine; Visit Provider Family Medicine
DX: E11.9 Type 2 diabetes mellitus without complications (principal)
CPT/HCPCS: 36415; 83036

== ENCOUNTER → 2022-04-07 09:29 | Outpatient (CLI) | payer OTHER, SELFPAY ==
--- NOTE | 2022-04-21 10:04 | DIAB.MNT ---
Initial Diabetes Medical Nutrition Therapy Assessment Name: Camilo Soria Date: 04/07/22 Time: [id number] Dx: Type II Diabetes Provider: Judd Page presents today for initial visit. Reports diagnosis of DM for about 6+ years. Endorses FH of T2DM with mother. Tearful today in discussing the passing of his son two years ago from T1DM related complications. States he is very motivated to manage his DM. States this is important to him. His goals are to reduce his HgA1c and lose weight. States dinners are the more difficult. Reports stress contributing to motivation to prepare meals. States his cat passed last week. Reports trial of 2 GLP1RA with same results, n/v/d at work. Currently taking pioglitizone, glipizide, and metformin. Diet Recall: 645a: 1/2c oatmeal with splenda and brown sugar and cinnamon 10a: banana 12p: sandwich on ww and low carb yogurt 6p: chicken with 1/2c rice, sometimes veggies or salad snacks: grazing on random foods ie sf pudding, sf jello, lunch meat, chips Beverages: 64 oz wtaer, sf soda, avoiding ETOH Anthropometrics: Ht: 5'11 Wt: 243# reported Physical Activity: Rides bike 3 days per week for 45-60 min 5 mi. One barrier to activity includes ankle pain, which he plans to discuss with PCP. 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 Self-Monitoring Blood Glucose: Reports checking a couple times per day: FBG and pre dinner. No meter or log book today. Reports FBG toay 148 mg/dL and pre dinner often 89-111 mg/dL. States he sometimes feels dizzy when BG is 80 mg/dL. Never seen a BG under 70 mg/dL. Diabetes Medications: Metformin 1000mg BID Glipizide 10mg BID Pioglitizone 45mg Pertinent Labs: HgA1c: 9.5% 12/2021 9.8% 09/2021 9.7% 06/2021 Past Medical History: (Last Reviewed 10/01/21 @ 15:40 by Shaista Mosquera DO) Diabetes Hyperlipidemia Hypertension Nutrition Rx: Carbohydrates: Meal:45g Snack:15-30g Nutrition Diagnosis: - Excessive kcal intake r/t avoiding snacks in the evening resulting in grazing aeb diet recall and pt report - Nutrition knowledge deficit r/t no previous MNT for DM aeb pt report Intervention: This participant was very receptive. Provided appropriate educational handouts. Discussed the following topics: Completed intake assessment. Discussed barriers to care. Pathophysiology of T2DM HgA1c, its correlation to blood glucose numbers, and rationale for goal Importance of self-monitoring, how often, and when to check. Suggested checking at different times to evaluate meals Plate Method, impact of macronutrients on blood sugar, meal timing, carbohydrate counting, pairing macronutrients and spreading out carbohydrates for better blood glucose management Recommended servings for carbohydrates at meals and snacks Heart [facility] nutrition Brainstormed appropriate meal plan based on food preferences Role of physical activity and following provider guidelines for safety Created SMART goals for patient self-care and success. Goals: Check grocery store for easy to prep frozen brown rice Try Hs snack to prevent grazing Cont bike ride safely 3 x per week Check BG FBG and 1-2 hr pc Follow-up: JULIA JULIO follow-up in 2 weeks for DSME class series and then 1:1 follow-up thereafter. Jammie Dumont RDN, [facility] Certified Diabetes Care and Rail Setter P: [phone] Thank you for this referral
== END ==
PROVIDERS: PCP Family Medicine; Referring Provider Family Medicine; Visit Provider Family Medicine
DX: E11.9 Type 2 diabetes mellitus without complications (principal); Z71.3 Dietary counseling and surveillance
CPT/HCPCS: 97802

== ENCOUNTER → 2022-04-20 07:04 | Outpatient (CLI) | payer OTHER, SELFPAY ==
[2022-04-20 09:23] LABS: Cholesterol 161 mg/dL (140-199); HDL Cholesterol 42 mg/dL (40-60); LDL Cholesterol Calculated 80 mg/dL (<100); Triglycerides 197 mg/dL (35-150)
[2022-04-20 11:15] LABS: Creatinine Urine Random 63.7 mg/dL; Protein (Total) Urine Random < 5 mg/dL (0-12); Protein Creatinine Ratio Urine 0.07 GRAM/24H
--- NOTE | 2022-04-26 14:47 | DIAB.FU ---
Follow-up Diabetes Education Assessment Name: Camilo Soria Date: 04/20/22 Time: 950a-6450a Camilo presents today for class 1 of 3 for DSME. States he has been reducing carb intake and checking BG. Finding his FBG are often elevated. Later in the day BG are in goal. Class topics covered: ? Debunk nutrition myths and discuss how to sustain healthy eating long-term through moderation and variety ? Define macronutrients and determine their impact on blood sugars ? Discuss macronutrient pairing, Plate Method, and carb counting ? Review general recommendations for carbohydrates ? Practice label reading ? Discuss the role of fiber in diabetes and provide examples of sources ? Review heart health nutrition: fats, fiber, and sodium ? Determine recommendations for grocery shopping and eating out ? Discuss alcohol recommendations ? Review the role of substitute sugars in diabetes management ? Set SMART goals Goal Set: Walk 3 days per week ; check BG daily Follow-up: Diabetes Physiology and Medication Class in one week Jammie Dumont RDN, [facility] Registered Dietitian, Certified Diabetes Care and Key Filer [phone] [email or web address]
== END ==
PROVIDERS: PCP Family Medicine; Referring Provider Family Medicine; Visit Provider Family Medicine
DX: E11.65 Type 2 diabetes mellitus with hyperglycemia (principal); E78.2 Mixed hyperlipidemia; E66.9 Obesity, unspecified; I10 Essential (primary) hypertension
CPT/HCPCS: 36415; 80061; 82570; 83036; 84156; G0109

== ENCOUNTER → 2022-04-27 09:20 | Outpatient (CLI) | payer OTHER, SELFPAY ==
--- NOTE | 2022-04-29 10:07 | DIAB.FU ---
Diabetes Education Class Series: Diabetes Physiology and Medications Name: Camilo Soria Date: 04/27/22 Time: [id number] Camilo presents for class 2 of 3 DSME classes. States managing complication risk is a priority for him. States he has been checking BG regularly at home. Continues taking Metformin and Sulfonylurea. Class topics covered: ? Diabetes pathophysiology ? Discuss different types of diabetes ? Review criteria for diagnosing diabetes ? Review HgA1c measurement and associated blood sugars ? Review blood sugar monitoring safety, technique, and goals ? Discuss ways to reduce complications associated with diabetes, includes microvascular and macrovascular complications ? Review diabetes medications types, action, and side effects ? Health care visits recommended for people with T2DM ? Immunization recommended for people with T2DM ? SMART goals review Follow-up: Diabetes Lifestyle and Ongoing Support Class next week Jammie Dumont RDN, [facility] Registered Dietitian, Certified Diabetes Care and Wind Farm Operations Manager [phone] [email or web address]
== END ==
PROVIDERS: PCP Family Medicine; Referring Provider Family Medicine; Visit Provider Family Medicine
DX: E11.9 Type 2 diabetes mellitus without complications (principal); Z71.3 Dietary counseling and surveillance
CPT/HCPCS: G0109

== ENCOUNTER → 2022-05-04 09:19 | Outpatient (CLI) | payer OTHER, SELFPAY ==
--- NOTE | 2022-05-04 11:47 | DIAB.FU ---
Diabetes Education Class Series: Diabetes Lifestyle Change and Ongoing Support Name: Camilo Soria Date: 05/04/22 Time: [id number] Camilo presents for class 3 of 3 for DSME. States he has been successful in managing portions, plate method, and adding more fiber into his diet. Some things he would like to work on include more stress management with meditation and more exercise. Class topics covered: ? Discuss the difference between physical activity and exercise ? Determine physical activity benefits and impact on diabetes ? Review physical activity recommendations and safety ? Discuss emergency preparedness ? Discuss diabetes and emotions (diabetes burnout/distress) ? Review and practice stress management techniques ? Review support groups and community resources ? Discuss the role of family support in diabetes care ? What is going well? Challenges of diabetes? ? Set SMART goals Goal Set: Incorporate meditation for stress management Follow-up: 1:1 visit follow-up Jammie Dumont RDN, [facility] Registered Dietitian, Certified Diabetes Care and [employer] [phone] [email or web address]
== END ==
PROVIDERS: PCP Family Medicine; Referring Provider Family Medicine; Visit Provider Family Medicine
DX: E11.9 Type 2 diabetes mellitus without complications (principal); Z71.3 Dietary counseling and surveillance
CPT/HCPCS: G0109

== ENCOUNTER → 2022-05-11 15:45 | Outpatient (CLI) | payer OTHER, SELFPAY ==
--- NOTE | 2022-05-27 11:15 | DIAB.MNTFU ---
Follow-up Diabetes Medical Nutrition Therapy Assessment Name: Camilo Soria Date: 05/11/22 Time: 4-440p Dx: Type II Diabetes Camilo presents for 1:1 follow-up post DSME classes. States he continues to stick to nutrition changes. Additionally has increased physical activity. Still struggling with elevated FBG. Reports h/o Jardiance, but this caused lower back pain he associated with kidney issues. Sees PCP in July. Most recent HgA1c reported 8% (down from 9.5% in 12/2021). Also down 8# since last visit. Endorses increased energy. Has also been working on mental health with meditation. Plans to do yoga with his neighbor 3 days per week. Drinks adequate fluids however reports most beverages consumed during the evening. Very little water during the day. Diet Recall: 645a: frozen breakfast sandwich 10a: banana and nuts or cheese 12p: sandwich with turkey or ham and low carb yogurt 230p: HB egg with almonds or cheese 6-7p: fish with veggies or chx with veg and 1c rice 8p: 10-15 chips with nuts or cheese Beverages: 64oz water, zero sugar gatorade Quit drinking beer. Anthropometrics: Ht: 5'11 Wt: 235# Last Visit Wt: 243# reported Physical Activity: Rides bike 3 days per week for 45-60 min 5 mi. One barrier to activity includes ankle pain, which he plans to discuss with PCP and plans to start PT. 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 Also incorporating resistance training 2 days per week. Self-Monitoring Blood Glucose: FBG readings all >130 mg/dL. Postprandial readings in goal <180 mg/dL. Continued physical activity and weight management may help reduce this readings, however he may benefit from additional DM medication or increase in glipizide. Date Pre Post Pre Post Pre Post HS 04/08 152 04/14 105 129 04/15 141 04/16 151 05/04 173 115 173 05/05 139 171 149 161 113 132 05/06 146 Diabetes Medications: Metformin 1000mg BID Glipizide 10mg BID Pioglitizone 45mg Pertinent Labs: HgA1c: 8% reported today 9.5% 12/2021 9.8% 09/2021 9.7% 06/2021 Past Medical History: (Last Reviewed 10/01/21 @ 15:40 by Shaista Mosquera DO) Diabetes Hyperlipidemia Hypertension Nutrition Rx: Carbohydrates: Meal:45g Snack:15-30g Nutrition Diagnosis: - Excessive kcal intake r/t avoiding snacks in the evening resulting in grazing aeb diet recall and pt report- improved - Nutrition knowledge deficit r/t no previous MNT for DM aeb pt report - improved - Intervention: This participant was very receptive. Provided appropriate educational handouts. Discussed the following topics: Blood sugar review and trends. Physical activity plan and progress Stress management/mental health strategies/plan Potential for med management for elevated FBG Fluids and kidney health Created SMART goals for patient self-care and success. Goals: Check grocery store for easy to prep frozen brown rice- met Try Hs snack to prevent grazing - met Cont bike ride safely 3 x per week- met Check BG FBG and 1-2 hr pc - met Consider more water during the day- new Follow-up: JULIA JULIO follow-up in July after PCP visit for check-in. Overall, Camilo is doing wonderful with lifestyle changes. The only concern currently is his elevated FBG. Encouraged him to discuss with provider for potential med management prn. he agreed. Jammie Dumont RDN, [facility] Certified Diabetes Care and Field Education Director P: [phone] Thank you for this referral
== END ==
PROVIDERS: PCP Family Medicine; Referring Provider Family Medicine; Visit Provider Family Medicine
DX: E11.9 Type 2 diabetes mellitus without complications (principal); Z79.84 Long term (current) use of oral hypoglycemic drugs; Z71.3 Dietary counseling and surveillance
CPT/HCPCS: 97803

== ENCOUNTER → 2022-08-12 15:18 | Outpatient (CLI) | payer OTHER, SELFPAY ==
--- NOTE | 2022-08-20 11:43 | DIAB.MNTFU ---
Follow-up Diabetes Medical Nutrition Therapy Assessment Name: Camilo Soria Date: 08/12/22 Time: 345-430p Dx: Type II Diabetes Provider: Judd Camilo presents for follow-up DM visit after attending DSME classes. States he is 'trying to get back on track.?Endorses having sweets now and then. Feels he has regressed some in lifestyle changes since classes. Some dinners high in CHO intake, ie taco night. Has upcoming [employer] cruise?in November. Judd f/u in 6 months. Diet Recall:? B: (6:45 am) oatmeal (quick oats, dry 1 cup) with 2% milk, cinnamon, and Splenda brown?sugar.? S: (10 am) banana and HB egg.? L: (12 pm) 1/2 sandwich, avocado, low CHO yogurt.? S: (2:30 pm) 1 serving almonds?+/- HBE D: (6-7 pm) not hungry. 1 cup rice, chicken, veggies OR 2 tacos (1-2 Tbsp beef, corn, 1-2 Tbsp beans, 1 cup rice) S: (8-9 pm nuts or 10-15 chips? ETOH: nothing.? Fluid: trying to increase more during the day.?Tends to drink most fluids after work. Anthropometrics: Ht: 5' Wt: 235# reported at PCP (down from initial wt of 243#). States his goal is to get under 230#. Physical Activity: 40-45 min walks on weekends. Has not been doing his resistance training exercises. Interested in indoor exercise equipment. Main barrier is reported fx left wrist, which he reports he has fx in the past. Self-Monitoring Blood Glucose: Less BG checks recently. Reports pre dinner 130 and elevated FBG of 180mg/dl. No meter or log for review. Diabetes Medications: Metformin 1000mg BID Glipizide 10mg BID Pioglitizone 45mg Pertinent Labs: HgA1c: 8% reported today (no change) 8% reported 04/2022 9.5% 12/2021 9.8% 09/2021 9.7% 06/2021 Past Medical History: (Last Reviewed 10/01/21 @ 15:40 by Shaista Mosquera DO) Diabetes Hyperlipidemia Hypertension Nutrition Rx: Carbohydrates: Meal:45g Snack:15-30g Nutrition Diagnosis: - Excessive CHO intake r/t some dinners >60g CHO aeb diet recall - Self monitoring deficit r/t reported less SMBG potentially due to stage of change aeb pt report Intervention: This participant was very receptive. Provided appropriate educational handouts. Discussed the following topics: SMBG plan and trends Motivation for managing T2DM Meal planning and carb counting review Physical activity plan and progress Created SMART goals for patient self-care and success. Goals: Get some indoor exercise equipment Increase SMBG freq Measure CHO portions at dinner Follow-up: JULIA JULIO follow-up in 2 months per pt request. Wants more time to implement changes. Jammie Dumont RDN, [facility] Certified Diabetes Care and Contractor [employer] P: [phone] Thank you for this referral
== END ==
PROVIDERS: PCP Family Medicine; Referring Provider Family Medicine; Visit Provider Family Medicine
DX: E11.9 Type 2 diabetes mellitus without complications (principal); Z71.3 Dietary counseling and surveillance; Z79.84 Long term (current) use of oral hypoglycemic drugs
CPT/HCPCS: 97803

== ENCOUNTER → 2022-10-07 15:15 | Outpatient (CLI) | payer OTHER, SELFPAY ==
--- NOTE | 2022-10-20 17:20 | DIAB.MNTFU ---
Follow-up Diabetes Medical Nutrition Therapy Assessment Name: Camilo Soria Date: 10/07/22 Time: 330-420p Dx: Type II Diabetes Provider: Judd Page presents for diabetes follow-up. Continues having BG elevations. Reports he has rx for Trulicity but has not started. Previously was taking Ozempic and experienced n/v/d x 1 week and stopped. States he cannot have these symptoms and work. States he has been more conscious of carb intake. Diet recall indicates low to moderate carb intake for most meals, occasional high carb intake with pasta. Has increased fiber with veggie intake. Diet Recall: 645: nothing or egg 10a: egg and banana 12p: half sandwich and avocado with low carb yogurt 230p: almonds and/or cheese stick 6-7p: salads or mac and cheese x 2c with ham or chicken with veg and 1c rice 8-9p: handful of corn chips Beverages: 60oz water, zero sugar soda Anthropometrics: Ht: 5'11 Wt: 230-235# reported Physical Activity: 45 min walking daily. Active at work. thinking of purchasing gym equipment to increase resistance training. Self-Monitoring Blood Glucose: Difficulty with getting blood sample for SMBG, however does not change lancet for weeks at a time. Likely dull needle and callused finger tips. Prior to visit tries to get many reading for review. All FBG above goal. Most postprandial breakfast readings elevated despite low carb options. post lunch often <180mg/dl (maybe due to activity with work?). Pre meal readings mostly elevated above 130mg/dl. Date Pre Post Pre Post Pre Post HS 09/28 212 205 205 178 162 09/29 180 176 160 146 139 09/30 204 178 167 156 142 10/01 199 187 168 154 122 10/05 190 221 130 141 171 10/06 154 201 192 242 152 10/07 194 191 Diabetes Medications: Metformin 1000mg BID Glipizide 10mg BID Pioglitizone 45mg Trulicity (not started) Pertinent Labs: HgA1c: 8% reported last visit (no change) 8% reported 04/2022 9.5% 12/2021 9.8% 09/2021 9.7% 06/2021 Past Medical History: (Last Reviewed 10/01/21 @ 15:40 by Shaista Botnick, DO) Diabetes Hyperlipidemia Hypertension Nutrition Rx: Carbohydrates: Meal:45g Snack:15-30g Nutrition Diagnosis: - Occasional excessive CHO intake r/t pasta portions aeb diet recall Intervention: This participant was very receptive. Provided appropriate educational handouts. Discussed the following topics: Blood sugar review and trends. Medication management: starting Trulicity, s/s, precautions Brief nutrition review SMBG review: changing lancet for best technique, usual recs to check 1-2 x per day Physical activity plan and progress Created SMART goals for patient self-care and success. Goals: Get some indoor exercise equipment- in progress Increase SMBG freq- met Measure CHO portions at dinner - met Change out lancet- new Look into workout equipment- new Start Trulicity Tuesday- new Follow-up: JULIA JULIO follow-up in 4 weeks. Overall, Camilo has implemented lifestyle changes but seems to need more coverage with meds. Hopeful that Trulicity will help with BG management. Jammie Dumont RDN, [facility] Certified Diabetes Care and Cell Operator P: [phone] Thank you for this referral
== END ==
PROVIDERS: PCP Family Medicine; Referring Provider Family Medicine; Visit Provider Family Medicine
DX: E11.9 Type 2 diabetes mellitus without complications (principal); Z79.84 Long term (current) use of oral hypoglycemic drugs; Z71.3 Dietary counseling and surveillance
CPT/HCPCS: 97803

== ENCOUNTER → 2022-11-04 15:14 | Outpatient (CLI) | payer OTHER, SELFPAY ==
--- NOTE | 2022-11-26 15:38 | DIAB.FU ---
Follow-up Diabetes Education Assessment Name: Camilo Soria Date: 11/04/22 Time: 320-4p Dx: Type II Diabetes Provider: Judd Page presents for Dm follow-up. States he is feeling some diabetes burnout with elevated BG despite lifestyle change. Also reports sugar cravings lately. States he tried Trulicity and experienced lower back pain to where he could not move for a few days after. D/c medication. Denied any n/v/d from med. Similar SE as Neal reported. Endorses wanting a medication that has less SE. Reports continued efforts in lower carb intake. Choosing lower carb HS snacks and pairing with protein. Has [place] cruise with girlfriend planned for November. Physical Activity: gardening, active at work. Walking most days. no resistance training. Self-Monitoring Blood Glucose: 4/ elevated FBG, 2/4 elevated after breakfast, 1/3 elevated after lunch. Improved from last visit when all FBG were elevated, with most readings 180-212mg/dl at that time. Improved blood sample with changing out lancet as discussed last visit. Date Pre Post Pre Post Pre Post HS 10/25 177 274 194 154 10/26 145 10/27 138 10/28 177 181 184 142 128 10/29 112 212 212 177 167 10/30 242 146 176 201 127 11/02 125 Diabetes Medications: Metformin 1000mg BID Glipizide 10mg BID Pioglitizone 45mg Trulicity (not taking) Pertinent Labs: HgA1c: 8% reported last visit (no change) 8% reported 04/2022 9.5% 12/2021 9.8% 09/2021 9.7% 06/2021 Past Medical History: (Last Reviewed 10/01/21 @ 15:40 by Shaista Mosquera DO) Diabetes Hyperlipidemia Hypertension Intervention: This participant was very receptive. Provided appropriate educational handouts. Discussed the following topics: Recent blood sugar results and trends Medication management: different med options. Potential for Hs insulin to help with FBG and less SE. Encouraged discussion with provider. Review of general nutrition recommendations and current intake Physical activity plan and impact on blood sugars Diabetes Burnout His progress in lifestyle change Created SMART goals for patient self-care and success. Goals: Change out lancet- met Look into workout equipment- in progress Start Trulicity Tuesday- met Make PCP appt- new Discuss DM med options, may benefit from HS insulin- new Follow-up: JULIA JULIO follow-up in Apr after this THALIA/SUMANTH returns from leave. Offered other options for follow-up outside this program. Jammie Dumont RDN, [facility] [place] Certified Diabetes Care and Credit Collections Specialist P: [phone] Thank you for this referral
== END ==
PROVIDERS: PCP Family Medicine; Referring Provider Family Medicine; Visit Provider Family Medicine
DX: E11.9 Type 2 diabetes mellitus without complications (principal); Z71.3 Dietary counseling and surveillance; Z79.84 Long term (current) use of oral hypoglycemic drugs
CPT/HCPCS: G0108

== ENCOUNTER 2023-04-05 07:05 | Day surgery (SDC) | payer OTHER, SELFPAY ==
--- NOTE | 2023-04-05 | PATH_ITS ---
[facility] [place] Accession Number: [id number] No. of containers..01 Tissue . 01 Material submitted: . colon - DESCENDING COLON POLYP . 01 Diagnosis: Descending Colon Polyp: Tubular adenoma. MRV 04/07/2023 1154 Local . 01 Electronically signed: . Vick Adrian MD, PhD, Pathologist NPI- [id number] . 01 Gross description: . DESCENDING COLON POLYP: Received in formalin are 2 fragment(s) of ortiz, soft tissue measuring 0.5 x 0.3 x 0.2 cm to 0.6 x 0.3 x 0.2 cm submitted entirely in 1 cassette(s) /SANDY 04/06/2023 1925 Local . 01 Pathologist provided ICD-10: D12.4 . 01 CPT . 365078 Specimen Comment: A courtesy copy of this report has been sent to [phone] Performed at: 01 [facility] [address] [facility] [address] [place] [address], [place], [place] [id number] MD Akshat Naylor MD Phone: [phone]
[2023-04-05 07:18] VITALS: BP 147/73; PULSE 65; RESP 16; TEMP 36.3; O2SAT 99; BMI 32.9
[2023-04-05] MEDS: LACTATED RINGERS 1,000 ML 150 ML IV (07:35)
[2023-04-05] MEDS: INSULIN LISPRO 100 UNIT/ML 3ML VIAL SUBCUT (07:47)
--- NOTE | 2023-04-05 08:12 | P.HP_ITS ---
History of Present Illness History of Present Illness Date Patient Seen: 04/05/23 Time Patient Seen: 08:12 Chief complaint: SDC Narrative: 62-year-old man with a positive fecal immunochemical test here for diagnostic colonoscopy. No previous colonoscopy or fairly history of intestinal malignancy. No abdominal concerns today including pain, unintentional weight loss gross blood per rectum. [facility] Medical History (Updated 04/05/23 @ 08:13 by Choco Gallagher MD) Diabetes Hyperlipidemia Hypertension Social History household members: none Smoking Status: Former smoker alcohol intake: never Meds Home Medications and Allergies Home Medications Medication Instructions Recorded Confirmed Type sodium,potassium,mag sulfates 17.5 See Rx Instructions PO .COMPLEX 03/25/23 04/05/23 Rx gram-3.13 gram-1.6 gram oral soln #354 mL (Suprep Bowel Prep Kit) atorvastatin 40 mg tablet mg 04/05/23 History bupropion HCl 150 mg tablet,12 hr mg PO 04/05/23 History sustained-release glipizide 10 mg tablet mg 04/05/23 History lisinopril 10 mg tablet mg 04/05/23 History metformin 500 mg tablet mg 04/05/23 History pioglitazone 45 mg tablet mg 04/05/23 History Allergies Allergy/AdvReac Type Severity Reaction Status Date / Time No Known Drug Allergies Allergy Verified 01/19/19 11:30 Exam Vital Signs (past 8 hours): - 04/05/23 07:18 Temperature 97.3 F L Pulse Rate 65 Respiratory Rate 16 Blood Pressure 147/73 H Pulse Oximetry 99 Oxygen Delivery Method Room Air Oxygen Delivery Method Room Air Narrative Exam Narrative: General adult man alert oriented no acute distress Abdomen soft nontender nondistended Assessment & Plan Assessment and plan (1) Positive FIT (fecal immunochemical test): Status: Acute Assessment & Plan narrative: 62-year-old man with a positive fecal immunochemical test here for diagnostic colonoscopy. Technical details were discussed. Risks, benefits, alternatives explained. Risks including but not limited to myocardial infarction, aspiration, bleeding, pain, missed lesion, incomplete examination, need for further radiographic studies, colonic perforation, and need for major abdominal surgery were discussed. All questions were answered to their satisfaction, and they are in agreement with this plan.
--- NOTE | 2023-04-05 08:24 | PM.OP.COLON ---
Operative Date/Time/Diagnoses Date of procedure: 04/05/23 Time of procedure: 08:25 Pre-op diagnosis: Positive fecal immunochemical test Post-op diagnosis: other (Colonic polyp x1) Procedure & Clinicians Study performed: Diagnostic Colonoscopy polypectomy Same procedure as scheduled: Yes Indications: Positive fecal immunochemical test Surgeon: Choco Gallagher Procedure Notes Procedure in detail: The history and physical was performed/updated and the patient is ASA class is 3. The procedure was discussed in detail with the patient. Potential risks complications including infection, bleeding, missed diagnosis, perforation, need for surgery, and were explained. Their questions were answered and informed consent was obtained. Patient was brought to the procedure room and placed standard monitoring equipment. The patient's vital signs were monitored continuously throughout the entire procedure. Prior to starting time-out was performed. The patient was placed in the left lateral recumbent position. Procedural sedation was administered by anesthesia. Examination began with a thorough inspection of the perianal area there was no evidence of fissures, fistulae, external hemorrhoids or cutaneous malignancy. The colonoscopy scope was then placed into the anal canal and was advanced to the cecum, which was identified by the ileocecal valve, the appendiceal orifice and the confluence of the taenia. The scope was then slowly withdrawn examining colon thoroughly in all directions, irrigating it of any residual stool. Descending colon-5 mm flat polyp removed in its entirety using cold snare at 100 cm from the verge. The area of the polyp was tattooed. Sigmoid colon-moderate diverticulosis. The patient tolerated the procedure well. They will be discharged once criteria are met. The prep was of fair quality. The withdrawl time was 8 minutes. Specimen(s): other (Descending colonic polyp 100 cm) Impression: Colonic polyp x1 Post-procedure Plan for aftercare: Follow-up is dependent on pathology findings Disposition: same day surgery
[2023-04-05 08:45] VITALS: BP 141/70; PULSE 50; RESP 12; TEMP 35.9; O2SAT 95
[2023-04-05 08:50] VITALS: BP 142/54; PULSE 48; RESP 12; O2SAT 96
[2023-04-05 08:55] VITALS: BP 146/71; PULSE 78; RESP 12; TEMP 36.4; O2SAT 96
[2023-04-05 09:00] VITALS: BP 153/80; PULSE 49; RESP 12; O2SAT 96
[2023-04-05 09:38] VITALS: BP 149/72; PULSE 49; RESP 14; TEMP 36.3; O2SAT 98
== END 2023-04-05 09:44 | disposition home or self-care (01) ==
PROVIDERS: PCP Family Medicine; Referring Provider Surgery; Visit Provider Surgery
PROC: 0DJD8ZZ Inspection of Lower Intestinal Tract, Via Natural or Artificial Opening Endoscopic (ICD-10-PCS; CPT 45378; principal; 2023-04-05 08:15)
DX: Z12.11 Encounter for screening for malignant neoplasm of colon (principal); R19.5 Other fecal abnormalities; K57.30 Diverticulosis of large intestine without perforation or abscess without bleeding; D12.4 Benign neoplasm of descending colon
CPT/HCPCS: 45381; 45385; 82962; J1815; J2704

== ENCOUNTER → 2023-05-25 15:15 | Outpatient (CLI) | payer OTHER, SELFPAY ==
--- NOTE | 2023-05-25 17:15 | DIAB.FU ---
Follow-up Diabetes Education Assessment Name: Camilo Soria Date: 05/25/23 Time: 330-601p Dx: Type II Diabetes Provider: Judd Page presents for Dm follow-up. Reports start of long-acting insulin BID, up to 15u BID. Reports much improved BG management with this. Diet recall indicates low to moderate carb intake for most meals, with occasional high intake ie pasta x 2c. Pairing CHO and pro well. Veggies daily. Reports he went on a cruise which challenged his eating regimen, ie big portions. Endorses weight gain during this, but now back to his usual regimen. Needs review for hypoglycemia treatment. Anthropometrics: Wt: 235# reported UBW: 230-235# reported Physical Activity: Bike or walk 45-60 mins daily Self-Monitoring Blood Glucose: Did not like FSL CGM. States it was not accurate. Discussed option for trial of Dexcom if he would like in the future since there is a calibration option. FBG mostly in goal 112-125mg/dl, much improved since starting insulin. Some readings later in the day pre dinner of 150-180mg/dl. No postprandial for review. Diabetes Medications: Metformin 1000mg BID Glipizide 10mg BID Pioglitizone 45mg Long acting insulin 15u BID Pertinent Labs: HgA1c: around 8.5% reported today (RD will req labs) 8% reported 04/2022 9.5% 12/2021 9.8% 09/2021 9.7% 06/2021 Past Medical History: (Last Reviewed 04/05/23 @ 08:13 by Chooc Gallagher MD) Diabetes Hyperlipidemia Hypertension Intervention: This participant was very receptive. Provided appropriate educational handouts. Discussed the following topics: Recent blood sugar results and trends Medication management Rule of 15 for low tx Review of general nutrition recommendations and current intake Physical activity plan and impact on blood sugars Created SMART goals for patient self-care and success. Goals: Make PCP appt- met Discuss DM med options, may benefit from HS insulin- met Check pc dinner BG- new If dinner reading >180mg/dl pc write down what you ate- new sales support assistant glucose tabs for hypo tx prn- new Message RD BG in one week- new Follow-up: JULIA CDC[facility] follow-up in 1-2 via messaging. 1:1 f/u in 1-2 months. Jammie Dumont RDN, [facility] Certified Diabetes Care and Cyber Transport Systems Specialist P: [phone] Thank you for this referral
== END ==
PROVIDERS: PCP Family Medicine; Referring Provider Family Medicine; Visit Provider Family Medicine
DX: E11.9 Type 2 diabetes mellitus without complications (principal); Z79.84 Long term (current) use of oral hypoglycemic drugs; Z79.4 Long term (current) use of insulin; Z71.3 Dietary counseling and surveillance
CPT/HCPCS: G0108

== ENCOUNTER 2023-07-10 23:19 | Emergency (ER) | payer OTHER, SELFPAY ==
[2023-07-10 23:33] VITALS: BP 178/84; PULSE 75; RESP 18; TEMP 36.4; O2SAT 99; BMI 34.4
--- NOTE | 2023-07-10 23:40 | PC.NURSE ---
see triage note hx of kidney stones
[2023-07-10 23:41] LABS: Urine Volume 10mL (spun)
[2023-07-10 23:43] VITALS: PULSE 67; O2SAT 98
[2023-07-10 23:44] LABS: Add Manual Diff / Slide Review NO; Basophils Absolute Auto 100 /uL (0-100); Basophils Percent Auto 0.5 % (0-2); Eosinophils Absolute Auto 100 /uL (0-450); Eosinophils Percent Auto 1.1 % (2-4); Hematocrit 41.4 % (41-53); Hemoglobin 14.2 g/dL (13.5-17.5); Lymphocytes Absolute Auto 1200 /uL (1100-4500); Lymphocytes Percent Auto 9.7 % (25-40); Mean Corpuscular HGB Conc 34.4 % (30-36); Mean Corpuscular Hemoglobin 30.4 PG (26-34); Mean Corpuscular Volume 88.2 fL (80-100); Monocytes Absolute Auto 1200 /uL (0-900); Monocytes Percent Auto 9.8 % (3-14); Neutrophils Absolute Auto 9500 /uL (1500-7000); Neutrophils Percent Auto 78.9 % (50-75); Platelet Count 188 X10^3/uL (150-400); Red Blood Cell Count 4.69 X10^6/uL (4.5-5.9); White Blood Cell Count 12.1 X10^3/uL (4.5-11.0)
[2023-07-10 23:57] LABS: Alanine Aminotransferase 30 IU/L (<50); Albumin 4.1 g/dL (3.5-5.0); Albumin Globulin Ratio 1.5 (1.0-2.8); Alkaline Phosphatase 70 U/L (38-126); Aspartate Aminotransferase 25 IU/L (17-59); BUN Creatinine Ratio 19.2 (6-22); Bilirubin Total 0.8 mg/dL (0.2-1.3); Blood Urea Nitrogen 30 mg/dL (9-20); Calcium 9.9 mg/dL (8.4-10.2); Carbon Dioxide 22 mmol/L (22-32); Chloride 108 mmol/L (98-107); Estimated Glomerular Filt Rate 51 mL/min (>60); Globulin 2.8 g/dL (1.7-4.1); Glucose 100 mg/dL (80-110); HEMOLYSIS < 15 (0-50); Lipase 1247 U/L (23-300); Sodium 140 mmol/L (137-145); Total Protein 6.9 g/dL (6.3-8.2)
[2023-07-11] VITALS (11 sets, daily range): BP systolic 152–174; BP diastolic 73–83; PULSE 67–98; RESP 18; O2SAT 93–99
--- NOTE | 2023-07-11 00:04 | ED.MALEGU ---
HPI - Male Genitourinary General Chief complaint: Urogenital-Male Stated complaint: kidney stone Time Seen by Provider: 07/11/23 00:01 Source: patient Mode of arrival: Ambulatory Limitations: no limitations History of Present Illness HPI Narrative: 62-year-old male with history of hypertension, dyslipidemia, diabetes type 2 and kidney stones who presents with complaint of right flank pain and suspected kidney stone. Patient states he has been trying to pass it at home stayed in his right back has not moved to the front at any point. He states no subjective fevers. He has had nausea and vomiting on and off. States had some loose stools but no black or blood. He has had hematuria and frequency. States feels very similar to prior kidney stones. He has not had any epigastric or upper abdominal pain. Patient states he has been taking Tylenol at home for pain. It has not been inadequate. States he has had prior lithotripsies for kidney stones, has had prior ureteral stents. States no stents in place currently. He has seen urology in the past and had procedures done here at [facility] and [facility]. Former smoker, occasional alcohol, uses marijuana but no other recreational drugs. Dr. Whaley is his primary care physician. Related Data Home Medications Medication Instructions Recorded Confirmed atorvastatin 40 mg tablet mg 04/05/23 bupropion HCl 150 mg tablet,12 hr mg PO 04/05/23 sustained-release glipizide 10 mg tablet mg 04/05/23 lisinopril 10 mg tablet mg 04/05/23 metformin 500 mg tablet mg 04/05/23 pioglitazone 45 mg tablet mg 04/05/23 Previous Rx's Medication Instructions Recorded oxycodone 5 mg tablet 5 mg PO QID PRN pain #14 tabs 07/11/23 tamsulosin 0.4 mg capsule (Flomax) 0.4 mg PO DAILY #7 caps 07/11/23 Allergies Allergy/AdvReac Type Severity Reaction Status Date / Time No Known Drug Allergies Allergy Verified 01/19/19 11:30 Review of Systems Review of Systems ROS Unobtainable: All systems reviewed & are unremarkable except as noted in HPI and below Patient History Medical History (Updated 07/11/23 @ 01:25 by Jocelyn Bond DO) Diabetes Hyperlipidemia Hypertension Social History household members: none Smoking Status: Former smoker alcohol intake: never Smoking Status: Former smoker alcohol intake frequency: holidays/special occasions only Substance Use Type: marijuana Exam Narrative Exam Narrative: GENERAL: Alert and oriented x three, male in moderate distress HEENT: Head normocephalic, atraumatic, EOMI, pupils reactive, face symmetric, moist mucous membranes NECK: Supple, full range of motion CARDIOVASCULAR: Regular rate and rhythm without murmurs, rubs or gallops. RESPIRATORY: Breath sounds equal bilaterally, no wheezes rales or rhonchi. ABDOMEN: Soft, nontender. Normoactive bowel sounds all 4 quadrants. No guarding or rebound, rigidity, no mass : No CVA tenderness on examination. EXTREMITIES: Normal range of motion, no clubbing or edema. Neurovascularly intact NEUROLOGICAL: Cranial nerves II through XII grossly intact. Moving all extremities SKIN: Warm, dry, no petechiae, no rashes or lesions. Initial Vital Signs Initial Vital Signs: Vital Signs Temperature 97.5 F L 07/10/23 23:33 Pulse Rate 75 07/10/23 23:33 Respiratory Rate 18 07/10/23 23:33 Blood Pressure 178/84 H 07/10/23 23:33 Pulse Oximetry 99 07/10/23 23:33 Oxygen Delivery Method Room Air 07/10/23 23:33 Course Orders Ordered: ED Orders 07/10/23 23:26 Urine Microscopic Stat 07/10/23 23:35 Complete Blood Count AUTO DIFF Stat Comprehensive Metabolic Panel Stat Lipase Stat 07/11/23 00:18 CT kidney ureter bladder (KUB) Stat 07/11/23 01:30 CT angio chest abdomen pelvis Stat Discontinued Medications Hydromorphone HCl (Hydromorphone 1 Mg Inj) 1 mg IV NOW ONE Stop: 07/11/23 01:09 Last Admin: 07/11/23 01:11 Dose: 1 mg Documented By: ÁNGEL Sodium Chloride (Normal Saline 0.9%) 1,000 mls @ 1,000 mls/hr IV BOLUS ONE Stop: 07/11/23 01:18 Last Infusion: 07/11/23 01:20 Dose: Infused Documented By: Admin: 07/11/23 00:23 Dose: 1,000 mls/hr Documented By: ÁNGEL Morphine Sulfate (Morphine 4 Mg/Ml Inj) 4 mg IV NOW ONE Stop: 07/11/23 00:19 Last Admin: 07/11/23 00:23 Dose: 4 mg Documented By: ÁNGEL Ondansetron HCl (Ondansetron 4 Mg Odt) 4 mg PO NOW PRN PRN Reason: Nausea And Vomiting Ondansetron HCl (Ondansetron 4 Mg/2 Ml Inj) 4 mg IV NOW PRN PRN Reason: Nausea And Vomiting Ondansetron HCl (Ondansetron 4 Mg/2 Ml Inj) 4 mg IV NOW ONE Stop: 07/11/23 00:20 Last Admin: 07/11/23 00:23 Dose: 4 mg Documented By: ÁNGEL Ondansetron HCl (Ondansetron 4 Mg Odt Prepack) 1 bottle MISC DIRECTED ONE Stop: 07/11/23 04:07 Last Admin: 07/11/23 04:17 Dose: 1 bottle Oxycodone/Acetaminophen (Oxycodone/Apap 5/325 Prepack) 1 bottle MISC DIRECTED ONE Stop: 07/11/23 04:07 Last Admin: 07/11/23 04:17 Dose: 1 bottle Vital Signs Vital signs: Vital Signs - 8 hr 07/10/23 23:33 07/10/23 23:43 07/11/23 00:00 Temperature 97.5 F L Pulse Rate 75 67 76 Respiratory Rate 18 18 Blood Pressure 178/84 H Pulse Oximetry 99 98 99 Oxygen Delivery Method Room Air 07/11/23 00:30 07/11/23 00:38 07/11/23 00:38 Temperature Pulse Rate 98 H 78 Respiratory Rate Blood Pressure 174/83 H Pulse Oximetry 98 97 Oxygen Delivery Method 07/11/23 01:00 07/11/23 01:30 07/11/23 02:00 Temperature Pulse Rate 72 73 74 Respiratory Rate 18 18 Blood Pressure Pulse Oximetry 96 95 95 Oxygen Delivery Method 07/11/23 02:33 07/11/23 03:00 07/11/23 03:34 Temperature Pulse Rate 71 75 71 Respiratory Rate 18 Blood Pressure Pulse Oximetry 97 95 95 Oxygen Delivery Method 07/11/23 04:00 07/11/23 04:09 Temperature Pulse Rate 67 70 Respiratory Rate 18 Blood Pressure 152/73 H Pulse Oximetry 93 99 Oxygen Delivery Method Room Air Room Air MDM - Male Genitourinary Lab Data 07/10/23 23:35 07/10/23 23:35 Labs: Lab Results 07/10/23 07/10/23 Range/Units 23:26 23:35 WBC 12.1 H (4.5-11.0) X10^3/uL RBC 4.69 (4.5-5.9) X10^6/uL Hgb 14.2 (13.5-17.5) g/dL Hct 41.4 (41-53) % MCV 88.2 (80-100) fL MCH 30.4 (26-34) PG MCHC 34.4 (30-36) % RDW 13.0 (11.6-14.8) % Plt Count 188 (150-400) X10^3/uL Neut % (Auto) 78.9 H (50-75) % Lymph % (Auto) 9.7 L (25-40) % [place] % (Auto) 9.8 (3-14) % Eos % (Auto) 1.1 L (2-4) % Baso % (Auto) 0.5 (0-2) % Neut # (Auto) 9500 H (9213-1416) /uL Lymph # (Auto) 1200 (1434-4182) /uL [place] # (Auto) 1200 H (0-900) /uL Eos # (Auto) 100 (0-450) /uL Baso # (Auto) 100 (0-100) /uL Sodium 140 (137-145) mmol/L Potassium 4.0 (3.4-5.1) mmol/L Chloride 108 H (98-107) mmol/L Carbon Dioxide 22 (22-32) mmol/L BUN 30 H (9-20) mg/dL Creatinine 1.56 H (0.66-1.25) mg/dL Estimated GFR 51 L (>60) mL/min BUN/Creatinine Ratio 19.2 (6-22) Glucose 100 (80-110) mg/dL Calcium 9.9 (8.4-10.2) mg/dL Total Bilirubin 0.8 (0.2-1.3) mg/dL AST 25 (17-59) IU/L ALT 30 (<50) IU/L Alkaline Phosphatase 70 (38-126) U/L Total Protein 6.9 (6.3-8.2) g/dL Albumin 4.1 (3.5-5.0) g/dL Globulin 2.8 (1.7-4.1) g/dL Albumin/Globulin Ratio 1.5 (1.0-2.8) Lipase 1247 H (23-300) U/L Urine RBC 30-100/hpf H (0-5/HPF) Urine WBC None seen (0-5/HPF) Ur Squamous Epith Cells 0-1 /hpf (0-5/HPF) Urine Bacteria Occasional (0-1) (None) Ur Culture Indicated? Cult not indicated Vol Urine Centrifuged 10ml (spun) Urine Dip Bedside Urine Glucose Negative Bedside Urine Bilirubin - Negative Bedside Urine Ketone - Negative Urine Specific [place] 1.02 Bedside Urine Occult Blood +++ Bedside Urine pH 6 Bedside Urine Protein - Negative Bedside Urine Urobilinogen - Negative Bedside Urine Nitrite - Negative Bedside Urine Leukocytes - Negative Esterase Imaging Data CT scan - abdomen/pelvis: Radiologist's Impression: [address] [address] [address] Scan Report Signed Patient: Camilo Soria MR#: [id number] : 1960 Acct:[id number] Age/Sex: 62 / M Date of Service: 07/11/23 Loc: ED Accession Number: [id number] Procedure: CT kidney ureter bladder (KUB) Ordering Provider: Jocelyn Bond D.O. PROCEDURE: CT KIDNEY URETER BLADDER (KUB) INDICATIONS: R flank pain x 4 days. not improving. TECHNIQUE: Axial sections were acquired from the lung bases to the pubic symphysis. Coronal and sagittal reformats were performed. For radiation dose reduction, the following was used: automated exposure control, adjustment of mA and/or kV according to patient size. COMPARISON: [facility], CT, CT ABDOMEN PELVIS W CON, 01/19/2019, 11:15. [facility], CT, KIDNEY/ URETER/BLADDER, 08/10/2011, 17:57. FINDINGS: Image quality: Diagnostic. Lower Chest: No significant findings. Small hiatal hernia. URINARY: Right Kidney and ureter: There is a 3 mm stone in the distal right ureter causing mild right hydronephrosis and perinephric stranding. Left Kidney: There are 3 non obstructive stones in left kidney measuring 1-3 mm. No hydronephrosis or hydroureter. Bladder: Normal wall thickness. No stones. ABDOMEN: Liver: No contour-deforming solid mass. A 1 cm low-density nodule in the left hepatic lobe is likely a cyst. Gallbladder: No radiopaque gallstones or wall thickening. Biliary ducts: No biliary dilation. Pancreas: No ductal dilation. Spleen: Size is within normal limits. Adrenal Glands: No adrenal nodules. Stomach and Bowel: Normal bowel caliber, without significant wall thickening. Diverticulosis without diverticulitis. Peritoneum: No abnormal intraperitoneal fluid. No free air. Ventral Wall: There is a moderate fat containing umbilical hernia hernia, increased in size. Abdominal Nodes: No enlarged retroperitoneal or mesenteric lymph nodes. Vessels: Mild infrarenal abdominal aortic aneurysm measuring 3.7 x 3.7 cm. There is moderate atherosclerotic calcifications. The inferior vena cava are normal in size. PELVIS: Pelvic Organs: Unremarkable. Pelvic Nodes: Unremarkable. Miscellaneous: There is a small fat containing left inguinal hernia. Bones: Unremarkable. IMPRESSION: 1. A 3 mm obstructive stone in the distal right ureter causing mild right hydronephrosis. 2. There are several nonobstructive left renal calculi. No left hydronephrosis. 3. Diverticulosis without acute diverticulitis. 4. Mild infrarenal abdominal aortic aneurysm measuring 3.7 cm. 5. Enlargement of a moderate-sized fat containing umbilical hernia. Dictated by: Jennifer Pierre M.D. on 07/11/2023 at 1:04 Approved by: Jennifer Pierre M.D. on 07/11/2023 at 1:13 CT angio chest/abd/pelvis: Radiologist's Impression: Right obstructive uropathy secondary to distal ureteral calculus, 3.8 cm infrarenal abdominal aortic fusiform aneurysm with no dissection. 4.1 cm slight ectasia of ascending aorta with no dissection. 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 Distended gallbladder questionable faint tiny gallstone your neck. Renal cysts including peripelvic. Osteoporosis. Mild spondylolysis. MDM Narrative Medical decision making narrative: 62-year-old male with history kidney stones, hypertension, diabetes persistent right flank pain for the past 4 days. Patient states feels very similar to kidney stones in the past he has had intervention for his kidney stone. White count is 12, normal hemoglobin and platelets. Leftward shift. Chemistries show a chloride of 108 normal sodium potassium, BUN 30 with a creatinine 1.56. Glucose is 100, LFTs are negative. Lipase is 1247. Patient notes no epigastric or right upper quadrant pain. States pain is all lower right flank. Urine shows 30-100 RBCs, no white cells, occasional bacteria, point of care is negative for nitrates and leukocyte esterase. CT KUB shows 3 mm obstructive stone in the distal right ureter causing mild right hydro, several nonobstructive left renal calculi, no hydro, diverticulosis without diverticulitis. Mild infrarenal abdominal aortic aneurysm measuring 3.7 cm is engagement of moderate-sized fat containing umbilical hernia. Aortic changes are not noted on prior CT from 01/19/2019. Discussed with patient's suspect that his symptoms are secondary to his kidney stone on the right but would recommend CT angio to fully evaluate as this is a new change from several years ago. Patient and I discussed findings. Suspect pain is probably from his kidney stone but he is agreeable to CT angio. Had additional dose of pain medication is much more comfortable currently. Took Flomax late last night so will not given additional dose right now. 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 Does still show right distal ureteral stone, discrepancy between size on CT angio and CT KUB. Patient has continued to be pain controlled here in the department. Updated on results. Discussed need for follow up with primary care for continued monitoring of his aneurysm and blood pressure control. Patient is on medication currently. States pain continues to be controlled here in the department. Feels comfortable with discharge home we will give script for Flomax, he had 1 tablet already overnight. Antinausea medication and pain medication. Discussed with patient to follow up with his renal function. Discharge Plan Departure Patient Disposition: Home Clinical Impression: Kidney stone on right side, Aneurysm of infrarenal abdominal aorta Activity Restrictions/Additional Instructions: You have a distal kidney stone in the right ureter. If your symptoms are not improving over the next 24 hours, call urology for follow-up. Contact information is below. Your creatinine is slightly elevated, please follow up with your physician to make sure this number improves or is consistent with your normal baseline renal function. Are also found to have a 3.8 cm infrarenal abdominal aortic fusiform aneurysm no dissection and small bilateral common iliac artery fusiform aneurysms. Follow up with your physician to have these checked regularly. You may take Tylenol up to a 1000 mg every 6 hours. You can take oxycodone 1-2 tablets every 6 hours as needed for pain. Take flomax once daily until gone. Prescription sent to [facility] in [place]. Please return for fevers, new or worsening abdominal back or flank pain, persistent vomiting, lightheadedness or passing out or other new or concerning changes. Prescriptions: New tamsulosin [Flomax] 0.4 mg capsule 0.4 mg PO DAILY Qty: 7 0RF oxycodone 5 mg tablet 5 mg PO QID PRN (Reason: pain) Qty: 14 0RF No Action atorvastatin 40 mg tablet Patient Comments: [NO ORIGINAL SIG] metformin 500 mg tablet Patient Comments: TAKE TWO TABLETS BY MOUTH TWICE DAILY bupropion HCl 150 mg tablet sustained-release 12 hr PO Patient Comments: TAKE ONE TABLET BY MOUTH ONE TIME DAILY glipizide 10 mg tablet Patient Comments: TAKE ONE TABLET BY MOUTH TWICE DAILY pioglitazone 45 mg tablet Patient Comments: TAKE ONE TABLET BY MOUTH ONE TIME DAILY lisinopril 10 mg tablet Patient Comments: TAKE ONE TABLET BY MOUTH ONE TIME DAILY Referrals: Luisa Can MD [Physician] - Yuriy Whaley MD [Primary Care Provider] - Stand Alone Forms: Patient Portal/API
[2023-07-11 00:16] LABS: Bacteria Urine Occasional (0-1); Culture Indicated Urine Cult Not Indicated; RBC Urine 30-100/HPF (0-5/HPF); Squamous Epithelial Cell Urine 0-1 /HPF (0-5/HPF); WBC Urine None Seen (0-5/HPF)
--- NOTE | 2023-07-11 00:18 | DI.CT.S_ITS ---
PROCEDURE: CT KIDNEY URETER BLADDER (KUB) INDICATIONS: R flank pain x 4 days. not improving. TECHNIQUE: Axial sections were acquired from the lung bases to the pubic symphysis. Coronal and sagittal reformats were performed. For radiation dose reduction, the following was used: automated exposure control, adjustment of mA and/or kV according to patient size. COMPARISON: [facility], CT, CT ABDOMEN PELVIS W CON, 01/19/2019, 11:15. [facility], CT, KIDNEY/ URETER/BLADDER, 08/10/2011, 17:57. FINDINGS: Image quality: Diagnostic. Lower Chest: No significant findings. Small hiatal hernia. URINARY: Right Kidney and ureter: There is a 3 mm stone in the distal right ureter causing mild right hydronephrosis and perinephric stranding. Left Kidney: There are 3 non obstructive stones in left kidney measuring 1-3 mm. No hydronephrosis or hydroureter. Bladder: Normal wall thickness. No stones. ABDOMEN: Liver: No contour-deforming solid mass. A 1 cm low-density nodule in the left hepatic lobe is likely a cyst. Gallbladder: No radiopaque gallstones or wall thickening. Biliary ducts: No biliary dilation. Pancreas: No ductal dilation. Spleen: Size is within normal limits. Adrenal Glands: No adrenal nodules. Stomach and Bowel: Normal bowel caliber, without significant wall thickening. Diverticulosis without diverticulitis. Peritoneum: No abnormal intraperitoneal fluid. No free air. Ventral Wall: There is a moderate fat containing umbilical hernia hernia, increased in size. Abdominal Nodes: No enlarged retroperitoneal or mesenteric lymph nodes. Vessels: Mild infrarenal abdominal aortic aneurysm measuring 3.7 x 3.7 cm. There is moderate atherosclerotic calcifications. The inferior vena cava are normal in size. PELVIS: Pelvic Organs: Unremarkable. Pelvic Nodes: Unremarkable. Miscellaneous: There is a small fat containing left inguinal hernia. Bones: Unremarkable. IMPRESSION: 1. A 3 mm obstructive stone in the distal right ureter causing mild right hydronephrosis. 2. There are several nonobstructive left renal calculi. No left hydronephrosis. 3. Diverticulosis without acute diverticulitis. 4. Mild infrarenal abdominal aortic aneurysm measuring 3.7 cm. 5. Enlargement of a moderate-sized fat containing umbilical hernia. Dictated by: Jennifer Pierre M.D. on 07/11/2023 at 1:04 Approved by: Jennifer Pierre M.D. on 07/11/2023 at 1:13
[2023-07-11] MEDS: ONDANSETRON 4 MG/2 ML INJ IV (00:23)
[2023-07-11] MEDS: MORPHINE 4 MG/ML INJ IV (00:23)
[2023-07-11] MEDS: SODIUM CHLORIDE 0.9% 1,000 ML 1000 ML IV (00:23)
[2023-07-11] MEDS: HYDROMORPHONE 1 MG INJ IV (01:11)
--- NOTE | 2023-07-11 01:30 | DI.CT.S_ITS ---
PROCEDURE: CT ANGIO CHEST ABDOMEN PELVIS INDICATIONS: r flank pain, +stone, infrarenal aneurysm new TECHNIQUE: Precontrast 5 mm thick sections acquired from the lung apices to the iliac crests. After the administration of intravenous contrast, 2.5 mm thick sections again acquired from the lung apices to the iliac crests. Maximum intensity projection (MIP) oblique sagittal and coronal reformats were then acquired. For radiation dose reduction, the following was used: automated exposure control. COMPARISON: None. FINDINGS: Image quality: Diagnostic. AORTA: 3.6 centimeter infrarenal aortic aneurysm. No acute aortic syndrome. CHEST: Lower Neck: No enlarged lymph nodes. Thyroid: No thyroid nodules which require sonographic evaluation. Axillae: No enlarged lymph nodes. Chest Wall: Unremarkable. Lungs and Pleura: No pneumothorax or pleural effusions. No consolidation or suspicious nodules. Calcified granuloma. Moderate centrilobular emphysema. Heart: Heart size is normal. No pericardial effusion. Three-vessel coronary calcifications , marked for age. Thoracic Vessels: Pulmonary arteries demonstrate normal size. Mediastinum and [place]: No enlarged lymph nodes. Esophagus: No wall thickening. No hiatal hernia. ABDOMEN: Liver: No solid mass. Gallbladder: No radiopaque gallstones or wall thickening. Biliary ducts: No biliary dilation. Pancreas: No ductal dilation. Spleen: Size is within normal limits. Adrenal Glands: No adrenal nodules. Kidneys and Ureters: Obstructing 4-5 millimeter stone in the distal right ureter (series 2, image 276). This results in moderate hydronephrosis and hydroureter, with a delayed nephrogram. Nonobstructing left-sided nephrolithiasis, small in number and size. Stomach and Bowel: Normal colonic caliber, without significant wall thickening. Colonic diverticulosis without evidence of diverticulitis. Peritoneum: No abnormal intraperitoneal fluid. No free air. Ventral Wall: No hernia. Abdominal Nodes: No retroperitoneal or mesenteric adenopathy by size criteria. Vessels: Unremarkable. PELVIS: Pelvic Organs: Unremarkable. Bladder: Unremarkable. Pelvic Nodes: No enlarged lymph nodes. Miscellaneous: No inguinal hernias are seen. Bones: Unremarkable. IMPRESSION: Obstructing 4 5 millimeter stone in the distal right ureter, resulting in moderate hydronephrosis, hydroureter and delayed nephrogram. Marked coronary artery calcifications for age. Consider cardiology referral. Infrarenal aortic aneurysm measuring 3.6 centimeters. Three year sonographic follow-up is recommended per ACR consensus guidelines. Dictated by: Perry Diamond M.D. on 07/11/2023 at 13:05 Approved by: Perry Diamond M.D. on 07/11/2023 at 13:13
[2023-07-11] MEDS: OXYCODONE/APAP 5/325 PREPACK 1 BOTTLE MISC (04:17)
[2023-07-11] MEDS: ONDANSETRON 4 MG ODT PREPACK 1 BOTTLE MISC (04:17)
== END 2023-07-11 04:21 | disposition home or self-care (01) ==
PROVIDERS: Emergency Provider Emergency Medicine; PCP Family Medicine
DX: N20.0 Calculus of kidney (principal); I71.43 Infrarenal abdominal aortic aneurysm, without rupture; Z87.442 Personal history of urinary calculi; Z79.899 Other long term (current) drug therapy
CPT/HCPCS: 36415; 71275; 74174; 74176; 80053; 81003; 81015; 83690; 85025; 96361; 96374; 96375; 99284; J1170; J2270; J2405; Q9967

== ENCOUNTER → 2023-08-02 15:39 | Outpatient (CLI) | payer OTHER, SELFPAY ==
--- NOTE | 2023-08-10 14:03 | DIAB.MNTFU ---
Follow-up Diabetes Medical Nutrition Therapy Assessment Name: Camilo Soria Date: 08/02/23 Time: 4-5p Dx: Type II Diabetes Camilo presents for diabetes f/u. Reports continued low to moderate carb meals during the day, however does endorse higher carb portions at dinner, ie 2c pasta, and at hs snack, ie chips and salsa or crackers and pb. Use to be happy with veggie hs snack per report. June ED visit d/t kidney stone. Reports h/o stones, which he thinks are calcium kidney stones but not certain. 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 For kidney stones, reports last one was 2-3 years ago. Reports adequate fluid intake and pays attention to Na intake. Anthropometrics: Wt: 240# reported UBW: 230-235# reported Physical Activity: Bike or walk 45-60 mins daily and resistance training with new home gym 30 min daily. Self-Monitoring Blood Glucose: Inconsistent SMBG. 5/ elevated above 130mg/dl. May benefit from increased insulin. Currently taking 15u BID. Weight considerations allows for up to 55u daily, but likely would only need 2-5u more per day for improved FBG. States he would prefer to see how exercise routine impacts bg, which also seems reasonable. Date Pre Post Pre Post Pre Post HS 07/05 116 07/07 172 07/12 141 07/13 140 07/20 178 07/28 112 08/02 146 Diabetes Medications: Metformin 1000mg BID Glipizide 10mg BID Pioglitizone 45mg Long acting insulin 15u BID Pertinent Labs: HgA1c: 7.9% 05/2023 per phone call to clinic 8.9% 02/2023 per clinic phone call 9.5% 12/2021 9.8% 09/2021 9.7% 06/2021 Past Medical History: (Last Reviewed 07/11/23 @ 00:21 by Jocelyn Bond DO) Diabetes Hyperlipidemia Hypertension Intervention: This participant was very receptive. Provided appropriate educational handouts. Discussed the following topics: Blood sugar review and trends. Impact of food intake v diabetes state v phys activity on results. Snack ideas for evening Carb recs for portions review Potential for insulin titration to help with hyperglycemia in the morning Physical activity plan and progress MNT for kidney stones: fluid recs and Na intake Different types of kidney stones and MNT recs for each Created SMART goals for patient self-care and success. 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 Camilo would like to follow-up in 3-4 months after next labs. Jammie Dumont RDN, CDCES Certified Diabetes Care and Route Deliverer P: [phone] Thank you for this referral
== END ==
PROVIDERS: PCP Family Medicine; Referring Provider Family Medicine; Visit Provider Family Medicine
DX: E11.9 Type 2 diabetes mellitus without complications (principal); Z79.84 Long term (current) use of oral hypoglycemic drugs; Z79.4 Long term (current) use of insulin; Z71.3 Dietary counseling and surveillance
CPT/HCPCS: 97803

== ENCOUNTER → 2024-07-16 10:35 | Outpatient (CLI) | payer OTHER, SELFPAY ==
--- NOTE | 2024-07-16 10:37 | DI.US.S_ITS ---
PROCEDURE: US ABD AORTA ANEURYSM SCREEN INDICATIONS: CHECK UP ON KNOWN AAA TECHNIQUE: Real time scanning was performed of the aorta and iliac arteries, with image documentation. COMPARISON: [facility], CT, VASCULAR^[id number]_PROTOCOL (ADULT), 07/11/2023, 2:20. FINDINGS: Aorta: The proximal aorta is not seen. Mid-aorta measures 2.6 cm. The distal aorta is aneurysmal, measuring 3.9 cm AP, with a with the 3.7 cm and a craniocaudal extent of 4.2 cm. Iliac arteries: Right common iliac artery measures 1.3 cm. Left common iliac artery measures 1.3 cm. This study is limited by body habitus. IMPRESSION: Distal abdominal aortic aneurysm, measuring 3.9 cm AP. By published criteria, ultrasound follow-up in 3 years is recommended. Dictated by: Angel Kamara M.D. on 07/16/2024 at 11:12 Approved by: Angel Kamara M.D. on 07/16/2024 at 11:14
== END ==
LOC: US 10:36
PROVIDERS: PCP Family Medicine; Referring Provider Family Medicine; Visit Provider Family Medicine
DX: I71.43 Infrarenal abdominal aortic aneurysm, without rupture (principal)
CPT/HCPCS: 76706